=== PATIENT | female | born 1985 | race Caucasian/White ===

== ENCOUNTER 2017-12-25 11:57 | Emergency (ER) | payer SELFPAY ==
[2017-12-25 12:06] VITALS: BP 129/87; PULSE 84; RESP 18; TEMP 36.5; O2SAT 93
--- NOTE | 2017-12-25 12:46 | ED.GENADUL_ITS ---
Discharge Plan Disposition Patient Disposition: HOME Condition: Stable Discharge Details Chief Complaint: RespSymp Clinical Impression: Asthmatic bronchitis Primary Care Provider: Antonette Khan ED Provider: Caprice Brown Home Meds and New Rx's Prescriptions: New prednisone 50 mg tablet 50 mg PO DAILY 5 Days Qty: 5 RF: 0 albuterol sulfate 2.5 mg/0.5 mL solution for nebulization 2.5 mg IH QID PRN (Reason: shortness of breath or wheezing) Qty: 30 RF: 0 azithromycin [Zithromax Z-He] 250 mg tablet See Label Instructions .ROUTE .COMPLEX Qty: 6 RF: 0 Continue cyanocobalamin (vitamin B-12) 250 MCG tablet 1 tab PO DAILY Qty: 100 RF: 3 cholecalciferol (vitamin D3) [Vitamin D3] 1,000 UNIT capsule 2 cap PO DAILY Qty: 200 RF: 3 levonorgestrel [Mirena] 1 EACH intrauterine device 1 ea Intrauterine ONCE Qty: 1 RF: 0 ipratropium-albuterol 3 ML solution for nebulization 3 ml Inhalation Q4H PRN Qty: 1 RF: 0 albuterol sulfate [ProAir HFA] 200 PUFF HFA aerosol inhaler 2 puff Inhalation Q6H PRN Qty: 1 RF: 0 multivitamin [Daily Multi-Vitamin] 1 EACH tablet 1 ea PO DAILY RF: 0 Discharge Instructions Instructions: Asthma (ED), Acute Bronchitis (ED) Additional Instructions: Take the steroids until finished. Use your inhaler and nebulizer machine as directed. If you have no relief in symptoms over the next 1-2 days, you may start the antibiotics. Follow-up with primary care doctor in 1 week for reevaluation. Return to the emergency department any worsening or new concerning symptoms. Discharge Data Discharge Date/Time-TO BE ENTERED AT DEPARTURE: 12/25/17 13:24 Discharge Physician: Caprice Brown Medical Decision Making 32-year-old female with a history of asthma who presents with productive cough and shortness of breath for the past 2 weeks, worse over the past week. Pt has IUD but otherwise no DVT/PE risk factors. Appears consistent with URI, bronchitis, acute asthma exacerbation, asthmatic bronchitis. Patient offered CXR but declines. Will give DuoNeb and dose of steroids. Discussed with patient that her symptoms can likely be due to an acute asthma exacerbation in association with a viral infection, but may progress to a bacterial infection. 1316 -- Pt admits to some improvement of symptoms after inhaler. Pt feels better and is requesting to go home. Albuterol inhaler given for home. Scripts for albuterol, prednisone given. As she is a smoker, prescription for Zithromax given if symptoms do not improve with steroids and inhaler over the next 2 days Patient instructed to follow-up with primary care doctor in 1 week for reevaluation and return here immediately if worse. HPI General Mode of arrival: ambulatory . Date/Time Provider Initiated Documentation: 12/25/17 12:11 . Limitations to Documentation: no limitations . Information obtained by: patient . HPI Narrative: Pt is a 32yo M who presents to the ED w/ a c/o cough with yellow and green sputum for the past 2 weeks, worse over the past week. Patient states she has a history of pneumonia last year and was last on antibiotics at that time. She denies known fever. She has been eating and drinking. She has been taking cough suppressants, inhalers and neb treatment without relief. She last used several neb treatments every 2 hours this morning with only temporary relief. She denies recent surgery, recent travel, leg pain or swelling. She admits to occasional dizziness at times of feeling short of breath earlier today but denies any present. Past medical history: Asthma Surgical history: Cholecystectomy, Social history: Smokes tobacco, daily alcohol use of 2 beers, previous history of opioid dependence Meds: Xopenex, ProAir, Mirena Allergies: None PCP: [facility] medical Denies known Related Data Home Medications Medication Instructions Recorded Confirmed multivitamin [Daily Multi-Vitamin] 1 ea PO DAILY 11/03/13 07/27/14 cholecalciferol (vitamin D3) 2 cap PO DAILY #200 tab-cap 02/05/15 [Vitamin D3] cyanocobalamin (vitamin B-12) 1 tab PO DAILY #100 tab 02/05/15 ipratropium-albuterol 3 ml INHALATION Q4H PRN #1 box 12/02/15 levonorgestrel [Mirena] 1 ea INTRAUTERINE ONCE #1 implant 12/02/15 albuterol sulfate [ProAir HFA] 2 puff INHALATION Q6H PRN #1 inh 03/06/18 albuterol sulfate 2.5 mg IH QID PRN #30 each 12/25/17 azithromycin [Zithromax Z-He] See Label Instructions .ROUTE 12/25/17 .COMPLEX #6 tab prednisone 50 mg PO DAILY 5 Days #5 tab 12/25/17 Previous Rx's Medication Instructions Recorded albuterol sulfate [ProAir HFA] 2 puff INHALATION Q6H PRN #1 inh 05/18/17 albuterol sulfate 2.5 mg IH QID PRN #30 each 12/25/17 azithromycin [Zithromax Z-He] See Label Instructions .ROUTE 12/25/17 .COMPLEX #6 tab prednisone 50 mg PO DAILY 5 Days #5 tab 12/25/17 Allergies Allergy/AdvReac Type Severity Reaction Status Date / Time CAT/FELINE PRODUCTS Allergy Severe Anaphylaxsi Uncoded 07/26/14 23:57 s General Stated Complaint: RespSymp SAVANNAH: 3 Review of Systems Review of Systems All systems reviewed & are unremarkable except as noted in HPI and below Constitutional Denies chills, Denies excessive sweating, Denies fatigue, Denies fever(s), Denies weakness and Denies weight loss Eyes Reports system reviewed and no additional complaints, except as docu and Denies blurry vision ENT Denies vertigo, Denies dizziness, Denies otalgia, Denies nasal congestion, Denies sore throat and Denies throat swelling Cardiovascular Denies chest pain, Denies syncope, Denies rapid heart rate and Reports dyspnea Respiratory Reports change in phlegm color (yellow, green), Reports chest congestion, Reports cough and Reports dyspnea Gastrointestinal Denies abdominal pain, Denies diarrhea and Denies vomiting Genitourinary Denies hematuria, Denies dysuria and Denies flank pain Musculoskeletal Denies back pain and Denies joint swelling Integumentary/Breasts Denies lesions and Denies rash Neurologic Denies behavioral changes, Denies confusion, Denies vertigo, Denies dizziness, Denies syncope and Denies weakness Psychiatric Denies behavioral changes, Denies confusion and Denies depression Endocrine Denies excessive sweating and Denies fatigue Hematologic/Lymphatic Denies easy bruising and Denies lymphadenopathy Allergic/Immunologic Denies throat swelling PFSH Family History Mother No problems noted. Father No problems noted. Sister No problems noted. Brother Asthma Grandfather No problems noted. Grandfather No problems noted. Grandmother Diabetes Grandmother No problems noted. Social History Smoking/Tobacco Use Status: Never Surgical History section (~12/2010) Cholecystectomy (~04/2011) ERCP Exam Const General: cooperative and healthy appearing Orientation: alert and awake [facility] Head: normal to inspection Ears: hearing grossly normal bilaterally, external ears normal and TM's normal bilaterally General nose exam: external nose normal Face and sinus: normal facial exam Mouth: oral mucosae normal Teeth and gingiva: dentition normal Throat: posterior oropharynx normal Eyes General: appearance normal, both eyes and all related structures Eyelids: eyelids normal Pupils: PERRL EOM: EOM intact bilaterally Neck Neck: normal visual inspection Lymphatic: no lymphadenopathy noted Chest Chest: normal inspection of the chest Resp Effort & Inspection: normal respiratory effort, able to speak in complete sentences, no respiratory distress and no use of accessory muscles Auscultation: no crackles, no rales, no rhonchi and wheezes (Wheezing throughout ) Cardio Rate: regular rate Rhythm: regular rhythm GI Inspection: normal to inspection Skin General skin exam: no rashes or lesions noted Neuro General: alert and awake Cognition: normal cognition Speech: speech normal Gait: normal gait Motor: muscle tone normal throughout Sensory Exam: no sensory deficits noted Extrem General: normal to inspection, full ROM, normal capillary refill and no edema Psych Appearance: grossly normal Mental Status: mental status grossly normal Speech and Movement: speech and movement normal Affect: normal affect Thought Process: normal Course Vital Signs Temperature 97.7 F 12/25/17 12:06 Pulse 84 12/25/17 12:06 Respiratory Rate 18 12/25/17 12:06 Blood Pressure 129/87 12/25/17 12:06 Pulse Oximetry 93 L 12/25/17 12:06 Temperature 97.7 F 12/25/17 12:06 Temperature Source Temporal Artery Scan 12/25/17 12:06 Pulse 84 12/25/17 12:06 Respiratory Rate 18 12/25/17 12:06 Blood Pressure 129/87 12/25/17 12:06 Pulse Oximetry 93 L 12/25/17 12:06 Pain Level 5 12/25/17 12:06
[2017-12-25 12:51] VITALS: RESP 4
[2017-12-25] MEDS: predniSONE 20 MG TAB 60 MG PO (12:51)
[2017-12-25] MEDS: Albuterol/Ipratropium 3 ML UPD VIAL UPD (12:51)
[2017-12-25 13:28] VITALS: BP 110/70; PULSE 88; RESP 18; TEMP 38; O2SAT 99
== END 2017-12-25 13:24 | disposition home or self-care (01) ==
PROVIDERS: Emergency Provider Physician Assistant; PCP Nurse Practitioner Family
DX: J44.0 Chronic obstructive pulmonary disease with (acute) lower respiratory infection (principal); J20.9 Acute bronchitis, unspecified; J45.990 Exercise induced bronchospasm; F17.210 Nicotine dependence, cigarettes, uncomplicated
CPT/HCPCS: 94640; 99283; J7512; J7620

== ENCOUNTER 2018-01-10 16:48 | Emergency (ER) | payer SELFPAY ==
[2018-01-10 16:52] VITALS: BP 108/78; PULSE 106; RESP 20; TEMP 36.7; O2SAT 96
--- NOTE | 2018-01-10 17:39 | W.ED.GENAD ---
Discharge Plan Disposition Patient Disposition: HOME Condition: Stable Discharge Details Chief Complaint: RespSymp Clinical Impression: Asthma exacerbation, URI (upper respiratory infection) Primary Care Provider: Antonette Khan ED Provider: Caprice Brown Home Meds and New Rx's Prescriptions: New albuterol sulfate 2.5 mg /3 mL (0.083 %) solution for nebulization 2.5 mg IH Q4H PRN (Reason: shortness of breath or wheezing) Qty: 75 RF: 0 prednisone 20 mg tablet 20 mg PO DIRECTED Qty: 12 RF: 0 albuterol sulfate 90 mcg/actuation aerosol powdr breath activated 2 puff IH Q6H PRN (Reason: shortness of breath or wheezing) Qty: 1 RF: 0 fluticasone-salmeterol [Advair Diskus] 250-50 mcg/dose blister with device 1 inh IH BID Qty: 14 RF: 0 Continue cyanocobalamin (vitamin B-12) 250 MCG tablet 1 tab PO DAILY Qty: 100 RF: 3 cholecalciferol (vitamin D3) [Vitamin D3] 1,000 UNIT capsule 2 cap PO DAILY Qty: 200 RF: 3 levonorgestrel [Mirena] 1 EACH intrauterine device 1 ea Intrauterine ONCE Qty: 1 RF: 0 ipratropium-albuterol 3 ML solution for nebulization 3 ml Inhalation Q4H PRN Qty: 1 RF: 0 albuterol sulfate [ProAir HFA] 200 PUFF HFA aerosol inhaler 2 puff Inhalation Q6H PRN Qty: 1 RF: 0 multivitamin [Daily Multi-Vitamin] 1 EACH tablet 1 ea PO DAILY RF: 0 albuterol sulfate 2.5 mg/0.5 mL solution for nebulization 2.5 mg IH QID PRN (Reason: shortness of breath or wheezing) Qty: 30 RF: 0 Discharge Instructions Instructions: Asthma (ED), Upper Respiratory Infection (ED) Additional Instructions: Use your albuterol inhaler and nebulizer as needed and directed. Use the Advair Diskus daily as directed. Take the steroids until finished. Follow-up with your primary care doctor in 1 week for reevaluation and for referral to allergy or pulmonology for further evaluation and management of your asthma. Return immediately to the emergency department any worsening or new concerning symptoms. Discharge Data Discharge Physician: Caprice Brown Medical Decision Making 32-year-old female with history of asthma who presents with cough, shortness of breath and wheezing for the past 5 days. Patient was seen here on 12/25/17 for similar symptoms, diagnosed with asthmatic bronchitis, and sent home with albuterol, steroids and Zithromax. Patient states she improved approximately 75%, finished her steroids 6 days ago, and her symptoms returned 5 days ago. He admits to cough with white sputum. She denies fever. Urine test negative. Vitals within normal limits. Heart rate mildly tachycardic on arrival but within normal limits upon my evaluation. Afebrile. Patient appears nontoxic, speaking full sentences. She does appear to have nasal congestion. She has wheezing and rhonchi throughout, but no retractions or accessory muscle use. Will give DuoNeb and a dose of steroids. Patient has been using 2-3 nebulizer treatments daily since stopping her steroids 5 days ago. 181 --patient feels better and is requesting to go home. She declines another neb treatment. She declines a chest x-ray. Discussed with patient that she likely can benefit from a controller medication such as Advair, as well as evaluation by allergy and/or pulmonology. Patient states she is followed by [facility]. She is instructed to call them to schedule follow-up appointment for reevaluation. Will place on care management list to help arrange for appointment with PCP as well as specialist as patient states she has been having difficulty with community connections due to her insurance. Discussed with patient the concerns with frequent steroid use for asthma and side effects including osteoporosis, infection, hyperglycemia. Also discussed the importance of follow-up with a specialist for management of her chronic asthma. Also discussed that as patient has no fever, no toxic appearing signs, antibiotics not indicated at this time and she is agreeable. She is not a smoker. HPI General Mode of arrival: ambulatory. Date/Time Provider Initiated Documentation: 01/10/18 17:08. Limitations to Documentation: no limitations. Information obtained by: patient. HPI Narrative: Patient is a 32-year-old female with a history of asthma who presents with cough, shortness of breath and wheezing for the past 5 days. Patient was seen here 2 weeks ago for the same complaint and given albuterol, prednisone and Zithromax. Patient states she finished the steroids almost 1 week ago, and her symptoms returned 2 days later. She states she improved approximately 75% after the steroids and antibiotics. He denies fever. She admits to cough with white sputum. Past medical history: Asthma, history of narcotic drug abuse Surgical history: Cholecystectomy, Social history: Former smoker, currently on nicotine patch. Denies alcohol or drugs. Medications: Albuterol nebulizer as needed, albuterol inhaler as needed, Mirena Allergies: CAT feline products PCP: [facility] Related Data Home Medications Medication Instructions Recorded Confirmed multivitamin [Daily Multi-Vitamin] 1 ea PO DAILY 11/03/13 01/10/18 cholecalciferol (vitamin D3) 2 cap PO DAILY #200 tab-cap 02/05/15 01/10/18 [Vitamin D3] cyanocobalamin (vitamin B-12) 1 tab PO DAILY #100 tab 02/05/15 01/10/18 ipratropium-albuterol 3 ml INHALATION Q4H PRN #1 box 12/02/15 01/10/18 levonorgestrel [Mirena] 1 ea INTRAUTERINE ONCE #1 implant 12/02/15 01/10/18 albuterol sulfate [ProAir HFA] 2 puff INHALATION Q6H PRN #1 inh 05/18/17 01/10/18 albuterol sulfate 2.5 mg IH QID PRN #30 each 12/25/17 01/10/18 albuterol sulfate 2 puff IH Q6H PRN #1 each 01/10/18 albuterol sulfate 2.5 mg IH Q4H PRN #75 ml 01/10/18 fluticasone-salmeterol [Advair 1 inh IH BID #14 each 01/10/18 Diskus] prednisone 20 mg PO DIRECTED #12 tab 01/10/18 Previous Rx's Medication Instructions Recorded albuterol sulfate [ProAir HFA] 2 puff INHALATION Q6H PRN #1 inh 05/18/17 albuterol sulfate 2.5 mg IH QID PRN #30 each 12/25/17 albuterol sulfate 2 puff IH Q6H PRN #1 each 01/10/18 albuterol sulfate 2.5 mg IH Q4H PRN #75 ml 01/10/18 fluticasone-salmeterol [Advair 1 inh IH BID #14 each 01/10/18 Diskus] prednisone 20 mg PO DIRECTED #12 tab 01/10/18 Allergies Allergy/AdvReac Type Severity Reaction Status Date / Time CAT/FELINE PRODUCTS Allergy Severe Anaphylaxsi Uncoded 01/10/18 16:57 s General Stated Complaint: RespSymp SAVANNAH: 3 Review of Systems Review of Systems All systems reviewed & are unremarkable except as noted in HPI and below Constitutional Reports as per HPI, Denies chills and Denies fever(s) Eyes Denies blurry vision ENT Denies dizziness, Denies sore throat and Denies throat swelling Cardiovascular Denies chest pain and Reports dyspnea Respiratory Reports cough, Reports dyspnea and Reports wheezing Gastrointestinal Denies abdominal pain, Denies diarrhea and Denies vomiting Genitourinary Denies hematuria and Denies dysuria Musculoskeletal Denies back pain and Denies numbness Integumentary/Breasts Denies lesions and Denies rash Neurologic Denies dizziness and Denies numbness Allergic/Immunologic Denies throat swelling and Reports wheezing PFSH Family History Mother No problems noted. Father No problems noted. Sister No problems noted. Brother Asthma Grandfather No problems noted. Grandfather No problems noted. Grandmother Diabetes Grandmother No problems noted. Social History Smoking/Tobacco Use Status: Never Surgical History section (~12/2010) Cholecystectomy (~04/2011) ERCP Exam Const General: cooperative and healthy appearing Orientation: alert and awake [facility] Head: normal to inspection Ears: hearing grossly normal bilaterally, external ears normal and TM's normal bilaterally General nose exam: external nose normal Face and sinus: normal facial exam and sinuses nontender Mouth: oral mucosae normal Teeth and gingiva: dentition normal Throat: posterior oropharynx normal Eyes General: appearance normal, both eyes and all related structures Eyelids: eyelids normal Pupils: PERRL EOM: EOM intact bilaterally Neck Neck: normal visual inspection Lymphatic: no lymphadenopathy noted Chest Chest: normal inspection of the chest Resp Effort & Inspection: normal respiratory effort and able to speak in complete sentences Auscultation: rhonchi and wheezes Cardio Rate: regular rate Rhythm: regular rhythm GI Inspection: normal to inspection Skin General skin exam: no rashes or lesions noted Neuro General: alert and awake Cognition: normal cognition Speech: speech normal Gait: normal gait Motor: muscle tone normal throughout Sensory Exam: no sensory deficits noted Extrem General: normal to inspection, full ROM and normal capillary refill Psych Appearance: grossly normal Mental Status: mental status grossly normal Speech and Movement: speech and movement normal Affect: normal affect Thought Process: normal Course Vital Signs Temperature 98.1 F 01/10/18 16:52 Pulse 106 H 01/10/18 16:52 Respiratory Rate 20 01/10/18 16:52 Blood Pressure 108/78 01/10/18 16:52 Pulse Oximetry 96 01/10/18 16:52 Temperature 98.1 F 01/10/18 16:52 Temperature Source Skin 01/10/18 16:52 Pulse 106 H 01/10/18 16:52 Respiratory Rate 20 01/10/18 16:52 Respiratory Effort 01/10/18 17:08 Respiratory Depth Normal 01/10/18 17:08 Blood Pressure 108/78 01/10/18 16:52 Blood Pressure Position Sitting 01/10/18 16:52 Pulse Oximetry 96 01/10/18 16:52 Oxygen Delivery Method Room Air 01/10/18 16:52 Oxygen Flow Rate 0 01/10/18 16:52 Pain Level 4 01/10/18 16:52
[2018-01-10 17:50] VITALS: RESP 8
[2018-01-10] MEDS: predniSONE 20 MG TAB 60 MG PO (17:50)
[2018-01-10] MEDS: Albuterol/Ipratropium 3 ML UPD VIAL UPD (17:50)
[2018-01-10 18:45] VITALS: BP 110/72; PULSE 94; RESP 16; TEMP 36.7; O2SAT 95
== END 2018-01-10 18:47 | disposition home or self-care (01) ==
PROVIDERS: Emergency Provider Physician Assistant; PCP Nurse Practitioner Family
DX: J45.901 Unspecified asthma with (acute) exacerbation (principal); J06.9 Acute upper respiratory infection, unspecified; Z87.891 Personal history of nicotine dependence
CPT/HCPCS: 81025; 94640; 99283; J7512; J7620

== ENCOUNTER 2018-03-11 17:11 | Outpatient (REF) | payer MEDICAID, SELFPAY ==
--- NOTE | 2018-03-11 16:30 | PAPFT_PTH ---
PATIENT: Bijal Aguirre LOC: [facility] U#:[id number] AGE/SX: 32/F ROOM: RE03/11/[address]: RYAN Carrillo : 1985 BED: DIS: 03/11/2018 SPEC #: [id number] RECD: 03/14/18 12:30 STATUS: HODA BARR #: [id number] MADAI: 03/11/18 16:[address]: Antonette Khan [facility] Cytology RECD BY: Cherie Villa Tissues: 1 - CX/ENDOCX FOR PAP SMEARS Procedures: PAP THIN PREP/UVM Screening HPV DNA PROBE Comments: [id number]
== END 2018-03-11 17:31 ==
LOC: LBN 17:11
PROVIDERS: PCP Nurse Practitioner Family; Visit Provider Nurse Practitioner Family
DX: Z12.4 Encounter for screening for malignant neoplasm of cervix (principal); Z11.51 Encounter for screening for human papillomavirus (HPV)
CPT/HCPCS: 88142; 87624

== ENCOUNTER 2018-04-20 08:10 | Emergency (ER) | payer MEDICAID, SELFPAY ==
--- NOTE | 2018-04-20 08:14 | NUR.NOTE ---
pt states that last night at approximately 1999 she fell and stuck her head pt has no recollection of this and woke up in the [place] only to find out that this had happened based on her husbands recollections of it. states that she was not unconscious when he found her pt states that her hair was matted from blood and she has had a headake 06/22 since she awoke
[2018-04-20 08:17] VITALS: BP 135/87; PULSE 103; RESP 17; TEMP 37.1; O2SAT 97
--- NOTE | 2018-04-20 08:53 | ED.GENADUL_ITS ---
Discharge Plan Disposition Patient Disposition: HOME Condition: Good Discharge Details Chief Complaint: HeadInjury Clinical Impression: Laceration of scalp, Head injury Primary Care Provider: Antonette Khan ED Provider: Caprice Brown Home Meds and New Rx's Prescriptions: Continued Mirena 20 mcg/24 hr (5 years) intrauterine device 1 insert IY ONCE RF: 0 Advair Diskus 250-50 mcg/dose blister with device 1 inh IH BID Qty: 60 RF: 6 albuterol sulfate 90 mcg/actuation HFA aerosol inhaler 1 - 2 puff IH Q6H PRN (Reason: shortness of breath or wheezing) Qty: 18 RF: 6 cyanocobalamin (vitamin B-12) 250 MCG tablet 1 tab PO DAILY Qty: 100 RF: 3 multivitamin [Daily Multi-Vitamin] 1 EACH tablet 1 ea PO DAILY RF: 0 Discharge Instructions Instructions: Laceration (ED), Head Injury (ED) Additional Instructions: Alternate Tylenol and Motrin as needed and directed for pain. If you develop any pain or tenderness, redness or swelling at the laceration site, you may apply antibiotic ointment. Follow up with your primary doctor in 2 days for wound check if needed. Follow-up with your primary care doctor or return to the emergency department in 10 days for staple removal. Return immediately to the emergency department any worsening or new concerning symptoms such as persistent headaches, vomiting or any other concerns. Discharge Data Discharge Date/Time-TO BE ENTERED AT DEPARTURE: 04/20/18 11:00 Discharge Physician: Caprice Brown Medical Decision Making 32-year-old female who presents with head injury and head laceration status post fall last night. She thinks she was sleepwalking when she may have gotten out of bed and tripped on a broken laundry basket hitting her head on the radiator. She does not remember the details of the fall, but she thinks this may have been what happened. No complaints of chest pain, palpitations, shortness of breath. Vitals within normal limits. Patient appears nontoxic and in no acute distress. She has a 3 cm superficial laceration to the back of the head. Normal ENT exam. No other evidence of chest, abdomen or extremity trauma or pain. C-spine/T-spine/L-spine nontender. No focal deficits. Per her history, it sounds like more of a mechanical fall, but since we do not know the details, will obtain an EKG, labs as well as CT head. EKG notes a rate of 87, sinus, T wave inversion in V3, no acute ST findings. Tetanus up-to-date 2011. 1020 --labs and imaging reviewed and unremarkable. CT head negative. No acute findings on labs. Patient states she feels better and no acute complaints. 5 haylee placed in the scalp laceration. Patient instructed to follow-up with primary care doctor return to the ER for staple removal in 10 days. She is instructed to follow-up with your primary care doctor in 1 week for reevaluation and return here at any time if worse such as persistent or worsening headaches, persistent vomiting or any other concerns. Medical Records Medical records reviewed: Yes I reviewed the patient's medical records. Lab Data Lab results reviewed: Yes I reviewed the patient's lab results. Laboratory Tests Range/Units 04/20/18 04/20/18 09:25 09:25 WBC (4.4-10.8) k/cumm 5.44 RBC (4.00-5.20) m/cumm 4.70 Hgb (12.0-15.5) g/dL 14.4 Hct (36.0-46.0) % 42.2 MCV (80-95) fL 89.8 MCH (27.0-33.0) pg 30.6 MCHC (32.0-36.0) g/dL 34.1 RDW (11.7-14.6) % 12.5 Plt Count (130-400) x1000/uL 229 MPV (8.0-11.0) fL 10.5 Immature Gran % 0.0 Neutrophils % 42.9 Lymphocytes % 39.7 Monocytes % 8.5 Eosinophils % 8.5 Basophils % 0.4 Absolute Neutrophils (1.2-6.7) k/cumm 2.34 Absolute Lymphocytes (1.2-3.4) k/cumm 2.16 Absolute Monocytes (0.11-0.7) k/cumm 0.46 Absolute Eosinophils (0.0-0.7) k/cumm 0.46 Absolute Basophils (0.0-0.2) k/cumm 0.02 Sodium (136-145) mmol/L 138 Potassium (3.5-5.1) mmol/L 4.4 Chloride (98-107) mmol/L 102 Carbon Dioxide (21.0-32.0) mmol/L 28.1 Anion Gap (3-11) mmol/L 7.9 BUN (7-18) mg/dL 15 Creatinine (0.55-1.02) mg/dL 0.70 Estimated GFR/1.73 m2 (mL/min/1.73m2) >= 60.00 Glucose (70-100) mg/dL 100 Calcium (8.5-10.1) mg/dL 9.2 test negative ECG Data Attestation: I personally reviewed and interpreted this ECG (s) as follows: Interpretation: Rate of 87, sinus, T wave inversion in lead V3, no acute ST elevation or depression. QTc 447. QRS 98. HPI General Mode of arrival: ambulatory . Date/Time Provider Initiated Documentation: 04/20/18 08:17 . Limitations to Documentation: no limitations . Information obtained by: patient . HPI Narrative: Patient is a 32-year-old female who presents with head laceration status post head injury last night. Patient states she went to bed approximately 9 PM and apparently fell shortly after falling asleep. She thinks that she stood up, tripped on the broken laundry basket that was near the bed and hit her head on the radiator. Patient states her checked on her after she fell and helped her to the bed. She states she remembers going to bed but does not remember the fall this morning but she thinks this is what happened. She states this morning she had matted blood on the back of her head and a headache 4/10. She denies any blurry vision, nausea, vomiting, dizziness, shortness of breath, arm pain or weakness or neck pain. Patient states she has had issues with sleeping lately and that she has been sleepwalking, as well as eating in the middle the night, and doing odd things. Patient states she has recently had a dream in which she thought she was drinking from a water bottle but was drinking a hand athletics director bottle. She states she has also made a coffee ground taco in the middle of the night. She states she was seen by her pcp for these sleeping difficulties and is planning to get a sleep study. Related Data Home Medications Medication Instructions Recorded Confirmed multivitamin [Daily Multi-Vitamin] 1 ea PO DAILY 11/03/13 04/20/18 cyanocobalamin (vitamin B-12) 1 tab PO DAILY #100 tab 02/05/15 04/20/18 albuterol sulfate HFA 90 1 - 2 puff IH Q6H PRN #18 gm 03/11/18 04/20/18 mcg/actuation aerosol inhaler fluticasone 250 mcg-salmeterol 50 1 inh IH BID #60 each 03/11/18 04/20/18 mcg/dose blistr powdr for inhalation levonorgestrel 20 mcg/24 hr (5 1 insert IY ONCE 03/11/18 04/20/18 years) intrauterine device Previous Rx's Medication Instructions Recorded albuterol sulfate HFA 90 1 - 2 puff IH Q6H PRN #18 gm 03/11/18 mcg/actuation aerosol inhaler fluticasone 250 mcg-salmeterol 50 1 inh IH BID #60 each 03/11/18 mcg/dose blistr powdr for inhalation Allergies Allergy/AdvReac Type Severity Reaction Status Date / Time CAT/FELINE PRODUCTS Allergy Severe Anaphylaxsi Uncoded 04/20/18 08:19 s General Stated Complaint: HeadInjury SAVANNAH: 3 Review of Systems Review of Systems All systems reviewed & are unremarkable except as noted in HPI and below Constitutional Reports as per HPI, Denies chills, Denies fever(s) and Reports headache(s) Eyes Denies blurry vision ENT Denies dizziness, Reports headache(s), Denies sore throat and Denies throat swelling Cardiovascular Denies chest pain and Denies dyspnea Respiratory Denies cough and Denies dyspnea Gastrointestinal Denies abdominal pain, Denies diarrhea and Denies vomiting Genitourinary Denies hematuria and Denies dysuria Musculoskeletal Denies back pain and Denies numbness Integumentary/Breasts Denies lesions and Denies rash Neurologic Denies dizziness, Reports headache(s), Denies focal weakness and Denies numbness Allergic/Immunologic Denies throat swelling [facility] Medical History Generalized anxiety disorder (Chronic) Asthma (Chronic) LGSIL on Pap smear of cervix (Resolved ~2003) Opioid abuse (Resolved) Surgical History History of colposcopy (Inactive ~2003) section (~12/2010) Cholecystectomy (04/22/11) ERCP Family History Mother No problems noted. Father No problems noted. Sister Down syndrome Hypothyroidism Brother Asthma Son Asthma Daughter No problems noted. Maternal Grandfather No problems noted. Maternal Grandmother Diabetes Paternal Grandfather No problems noted. Paternal Grandmother No problems noted. Social History caregiver/support person: No household members: significant other and children housing: apartment pets and animals: Yes pets and animals: snake(s) and other details: rat, hedgehog sexually active: Yes do you think of yourself as: straight/heterosexual current gender identity: female what type of physical activity do you participate in: other details: work frequency: 3-4 times per week Smoking and Tabacco status: Current every day tobacco type: cigarettes how long ago did patient quit smoking: has quit before second hand exposure: Yes alcohol intake: current alcohol intake frequency: 3 or more drinks per day Alcohol type: beer and hard liquor substance use type: former substance user, marijuana, crack/cocaine and heroin jesika/anabaptist: [employer]ar[employer] What is your relationship status?: living with partner How often do you talk on the phone with friends or family?: twice per week How often do you get together with friends or relatives?: never How often do you attend taoism or pentecostal services?: 1-3 times per year Do you belong to any clubs or organized social groups?: no Panel score (0-1 are the most socially isolated patients): 1 History History 2 Para Hx # Term Pregnancies Multiple births Hx # Pregnancies Ectopic pregnancies AB induced Hx Number of Living Children 2 AB spontaneous Exam Const General: cooperative and healthy appearing Orientation: alert and awake HENOH Head images: 1. 3cm straight laceration posterior head/scalp Ears: hearing grossly normal bilaterally, external ears normal and TM's normal bilaterally General nose exam: external nose normal Face and sinus: normal facial exam Mouth: oral mucosae normal Teeth and gingiva: dentition normal Throat: posterior oropharynx normal Eyes General: appearance normal, both eyes and all related structures Eyelids: eyelids normal Pupils: PERRL EOM: EOM intact bilaterally Neck Neck: normal visual inspection Lymphatic: no lymphadenopathy noted Chest Chest: normal inspection of the chest, normal palpation of entire chest wall and no tenderness Resp Effort & Inspection: normal respiratory effort and able to speak in complete sentences Auscultation: clear to auscultation bilaterally Cardio Rate: regular rate Rhythm: regular rhythm GI Inspection: normal to inspection Palpation: soft, not firm, no guarding, no hepatosplenomegaly, no masses and nontender Auscultation: normal bowel sounds Back/Spine/Pelvis Back: no CVA tenderness Cervical Spine: No cervical muscular tenderness and No cervical spinal tenderness Thoracic/Lumbar Spine: thoracic and lumbar spine normal to inspection, No thoracic spinal tenderness and No lumbar spinal tenderness Skin General skin exam: no rashes or lesions noted Neuro General: alert and awake Cranial Nerves: CN's II-XI intact bilaterally Cognition: normal cognition Speech: speech normal Gait: normal gait Motor: muscle tone normal throughout and strength 5/5 throughout Sensory Exam: no sensory deficits noted Extrem General: normal to inspection, full ROM, normal capillary refill and no edema Psych Appearance: grossly normal Mental Status: mental status grossly normal Speech and Movement: speech and movement normal Affect: normal affect Thought Process: normal Course Vital Signs Temperature 98.8 F 04/20/18 08:17 Pulse 103 H 04/20/18 08:17 Respiratory Rate 17 04/20/18 08:17 Blood Pressure 135/87 04/20/18 08:17 Pulse Oximetry 97 04/20/18 08:17 Temperature 98.8 F 04/20/18 08:17 Temperature Source Skin 04/20/18 08:17 Pulse 103 H 04/20/18 08:17 Respiratory Rate 17 04/20/18 08:17 Respiratory Effort 04/20/18 08:20 Blood Pressure 135/87 04/20/18 08:17 Blood Pressure Position Sitting 04/20/18 08:17 Pulse Oximetry 97 04/20/18 08:17 Oxygen Delivery Method Room Air 04/20/18 08:17 Oxygen Flow Rate 0 04/20/18 08:17 Pain Level 4 04/20/18 08:17 Procedures Laceration Laceration 1: Site: scalp Size (cm): 3 Description: linear Depth: simple, single layer Local Anesthetic: Lidocaine 1% and with Epi Amount of anesthesia used (mL): 5 Pre-repair: wound explored, irrigated extensively and deep structures intact Skin layer closed with: other (5 haylee)
--- NOTE | 2018-04-20 09:04 | DI.CT_ITS ---
SYMPTOMS/DIAGNOSIS: S/P FALL, ? ACUTE FRACTURE/INTRACRANIAL INJURY NONCONTRAST HEAD CT: No intracranial hemorrhage or skull fracture is seen. The orbits and visualized portions of the sinuses and mastoid air cells are unremarkable. The ventricles are normal in size. IMPRESSION: Negative head CT.
[2018-04-20 09:26] LABS: Absolute Basophil Count 0.02 k/cumm (0.0-0.2); Absolute Eosinophil Count 0.46 k/cumm (0.0-0.7); Absolute Lymphocyte Count 2.16 k/cumm (1.2-3.4); Absolute Monocyte Count 0.46 k/cumm (0.11-0.7); Absolute Neutrophil Count 2.34 k/cumm (1.2-6.7); Basophils % 0.4; Eosinophils % 8.5; HCT 42.2 % (36.0-46.0); HGB 14.4 g/dL (12.0-15.5); Lymphocytes % 39.7; Mean Corp. HGB Concentration 34.1 g/dL (32.0-36.0); Mean Corpuscular Hemoglobin 30.6 pg (27.0-33.0); Mean Corpuscular Volume 89.8 fL (80-95); Mean Platelet Volume 10.5 fL (8.0-11.0); Monocytes % 8.5; Neutrophils % 42.9; Platelet Count 229 x1000/uL (130-400); RBC Distribution Width 12.5 % (11.7-14.6); White Blood Cell Count 5.44 k/cumm (4.4-10.8)
[2018-04-20 09:37] LABS: Anion Gap 7.9 mmol/L (3-11); BUN 15 mg/dL (7-18); CO2 28.1 mmol/L (21.0-32.0); Calcium 9.2 mg/dL (8.5-10.1); Chloride 102 mmol/L (98-107); Glucose 100 mg/dL (70-100); Potassium 4.4 mmol/L (3.5-5.1); Sodium 138 mmol/L (136-145)
[2018-04-20 10:51] VITALS: BP 135/87; PULSE 103; RESP 17; TEMP 37.1; O2SAT 97
== END 2018-04-20 11:00 | disposition home or self-care (01) ==
PROVIDERS: Emergency Provider Physician Assistant; PCP Nurse Practitioner Family
DX: S09.90XA Unspecified injury of head, initial encounter (principal); S01.01XA Laceration without foreign body of scalp, initial encounter; W01.198A Fall on same level from slipping, tripping and stumbling with subsequent striking against other object, initial encounter
CPT/HCPCS: 12002; 36415; 80048; 81025; 93005; 99284; 70450; 85025; 93010

== ENCOUNTER 2018-04-29 08:44 | Outpatient (CLI) | payer MEDICAID, SELFPAY ==
[2018-04-29 16:15] LABS: ALT 246 U/L (12-78); AST 213 U/L (15-37); Albumin 4.1 g/dL (3.4-5.0); Alkaline Phosphatase 146 U/L (46-116); Anion Gap 9.6 mmol/L (3-11); BUN 14 mg/dL (7-18); Bilirubin, Total 0.5 mg/dL (0.2-1.0); CO2 27.4 mmol/L (21.0-32.0); CREATININE 0.58 mg/dL (0.55-1.02); Calcium 9.4 mg/dL (8.5-10.1); Chloride 101 mmol/L (98-107); Cholesterol 167 mg/dL (50-200); Glucose 94 mg/dL (70-100); HDL Cholesterol 90 mg/dL (40-60); LDL CHOLESTEROL 63 mg/dL (<100); Potassium 4.5 mmol/L (3.5-5.1); Sodium 138 mmol/L (136-145); TSH 1.11 uIU/mL (0.358-3.74); Total Protein 8.5 g/dL (6.4-8.2); Triglyceride 51 mg/dL (30-150)
[2018-04-29 16:35] LABS: FREE T4 0.84 ng/dL (0.76-1.46)
[2018-05-02 15:41] LABS: Hepatitis A Antibody IgM Negative (NEGAT); Hepatitis B Core Antibody Negative (NEGAT); Hepatitis B surface Ag Negative (NEGAT); Hepatitis C Ab w Rflx HCV PCR Reactive (NEGAT)
== END 2018-04-29 09:04 ==
PROVIDERS: PCP Nurse Practitioner Family; Visit Provider Nurse Practitioner Family
DX: F41.1 Generalized anxiety disorder (principal); R94.5 Abnormal results of liver function studies; E11.9 Type 2 diabetes mellitus without complications; J45.40 Moderate persistent asthma, uncomplicated; R53.83 Other fatigue
CPT/HCPCS: 80053; 80061; 83721; 86704; 86709; 86803; 87340; 84439; 84443; 87522

== ENCOUNTER 2020-01-10 19:09 | Emergency (ER) | payer MEDICAID, SELFPAY ==
[2020-01-10] VITALS (8 sets, daily range): BP systolic 110–134; BP diastolic 75–87; PULSE 91–103; RESP 16–18; TEMP 37.1; O2SAT 92–96
--- NOTE | 2020-01-10 19:13 | W.ED.GENAD ---
Discharge Plan Disposition Patient Disposition: HOME Condition: Good Discharge Details Clinical Impression: Asthma, Hypokalemia Primary Care Provider: Antonette Khan ED Provider: Kalie Penaloza Home Meds and New Rx's Prescriptions: New prednisone 20 mg tablet 40 mg PO DAILY Qty: 8 RF: 0 albuterol sulfate 2.5 mg /3 mL (0.083 %) solution for nebulization 2.5 mg inhalation Q4H PRN (Reason: shortness of breath or wheezing) Qty: 75 RF: 0 Continued Mirena 20 mcg/24 hr (5 years) intrauterine device 1 insert IY ONCE RF: 0 cyanocobalamin (vitamin B-12) 250 MCG tablet 1 tab PO DAILY Qty: 100 RF: 3 albuterol sulfate 90 mcg/actuation HFA aerosol inhaler 1 - 2 puff IH Q6H PRN (Reason: shortness of breath or wheezing) Qty: 18 RF: 6 Advair HFA 115-21 mcg/actuation HFA aerosol inhaler 2 puff IH BID Qty: 12 RF: 4 ipratropium-albuterol 0.5 mg-3 mg(2.5 mg base)/3 mL solution for nebulization 3 ml IH QID PRN (Reason: wheezing) Qty: 15 RF: 6 multivitamin [Daily Multi-Vitamin] 1 EACH tablet 1 ea PO DAILY RF: 0 Discharge Instructions Instructions: Asthma (ED), Hypokalemia (ED) Additional Instructions: Your workup here today is most consistent with asthma exacerbation. Please use your inhaler and nebulizer as previously advised. First dose of steroids was given here tonight. Please take next dose in 24 hours. Please take as prescribed. Please follow up with primary care in one week for reevaluation. If you develop fevers/chills, chest pain, increased work of breathing or other new/worsening symptoms please seek care ugently once again. Stand Alone Forms: Work Release Referrals: Antonette Khan NP [Primary Care Provider] - Medical Decision Making Patient is a pleasant 34 year old female presneting today with c/c of SOB. States that it started 10 days ago and feels like her asthma has historically. She states this started after completing demolishion of a bathroom which she believes airated large amount of dust. She Denies CP. No GI upset, no HEENT symptoms. States that today she felt fatigued and achy which she associated with her persistent asthma. Symptoms improve with inhaler or nebulizer. Patient is on estrogen containing contraception. On exam, patient is in no respiratory distress. She is calm and nontoxic appearing. Scant wheezing in upper lobes bilaterally. Tachycardic, cardiac exam otherwise WNL. No lower extremity edema or calf tenderness. She and I dicussed differential. in particular, I am concerned about potential PE as she is a smoker and uses estrogen containing products. Plan to move forward with d-dimer and baseline labs. She is declining further breathing treatment at this time. States that sarah used nebulizer just prior to arrival. D-dimer WNL. No leukocytosis. Stable H&H. Potassium slightly low at 3.3, will replenish this orally. CXR reviewed by radiologist: FINDINGS: Lungs: Hyperinflation. No consolidation. Pleural space: Unremarkable. No pleural effusion. No pneumothorax. Heart/Mediastinum: Unremarkable. No cardiomegaly. Diaphragm: Eventrations of the hemidiaphragms. Bones/joints: Unremarkable. IMPRESSION: Hyperinflation of the lungs. Patient continues to feel well at rest. Will treat for asthma exacerbation with prednisone. First dose given here. She was given return precautions. Will refill her nebulizer medication as she states that this is running low. Encouraged close f/u with PCP. All quesitons and concerns were addressed, she is in agreement with this plan. All of her questions and concerns were addressed,she is in agreement with this plan. HPI General Mode of arrival: ambulatory. Date/Time Provider Initiated Documentation: 01/10/20 19:10. Limitations to Documentation: no limitations. Information obtained by: patient and RN notes reviewed. History of Present Illness 34 year old F presents to the emergency department with the chief complaint of shortness of breath, cough, described as moderate, Patient started experiencing this day(s) (10) and it has been constant. Immobilization improves symptom(s), and Medication improves symptom(s), (albuterol nebulizer) Movement worsens symptoms . Patient notes no other symptoms.. Patient did receive the following treatments prior to arrival, other (inhaler) Related Data Home Medications Medication Instructions Recorded Confirmed multivitamin [Daily Multi-Vitamin] 1 ea PO DAILY 11/03/13 01/10/20 cyanocobalamin (vitamin B-12) 1 tab PO DAILY #100 tab 02/05/15 01/10/20 levonorgestrel 20 mcg/24 hours (5 1 insert IY ONCE 03/11/18 01/10/20 yrs) 52 mg intrauterine device albuterol sulfate 90 mcg/actuation 1 - 2 puff IH Q6H PRN #18 gm 08/03/19 01/10/20 aerosol inhaler fluticasone propionate 115 2 puff IH BID #12 gm 08/03/19 01/10/20 mcg-salmeterol 21 mcg/actuation HFA inhaler ipratropium 0.5 mg-albuterol 3 mg 3 ml IH QID PRN #15 ml 01/04/20 01/10/20 (2.5 mg base)/3 mL nebulization soln albuterol sulfate 2.5 mg INHALATION Q4H PRN #75 ml 01/10/20 prednisone 40 mg PO DAILY #8 tab 01/10/20 Previous Rx's Medication Instructions Recorded albuterol sulfate 90 mcg/actuation 1 - 2 puff IH Q6H PRN #18 gm 08/03/19 aerosol inhaler fluticasone propionate 115 2 puff IH BID #12 gm 08/03/19 mcg-salmeterol 21 mcg/actuation HFA inhaler ipratropium 0.5 mg-albuterol 3 mg 3 ml IH QID PRN #15 ml 01/04/20 (2.5 mg base)/3 mL nebulization soln albuterol sulfate 2.5 mg INHALATION Q4H PRN #75 ml 01/10/20 prednisone 40 mg PO DAILY #8 tab 01/10/20 Allergies Allergy/AdvReac Type Severity Reaction Status Date / Time adhesive Allergy Mild faint rash Verified 01/10/20 19:17 CAT/FELINE PRODUCTS Allergy Severe Anaphylaxsi Uncoded 01/10/20 19:17 s General SAVANNAH: 3 Review of Systems Constitutional Constitutional: Reports as per HPI, Denies chills, Reports fatigue, Denies fever(s), Denies headache(s), Denies lethargy and Denies poor appetite Eyes Eyes: Denies change in vision ENT Ears, Nose, Mouth, and Throat: Denies dizziness and Denies headache(s) Cardiovascular Cardiovascular: Reports as per HPI, Reports dyspnea (none curently while at rest) and Reports dyspnea on exertion Respiratory Respiratory: Reports as per HPI, Denies chest congestion, Denies cough, Denies hemoptysis, Denies pain on inspiration, Denies pain with cough, Reports dyspnea (none curently while at rest), Reports dyspnea on exertion and Reports wheezing Gastrointestinal Gastrointestinal: Reports as per HPI, Denies abdominal pain, Denies diarrhea, Denies nausea and Denies vomiting Musculoskeletal Musculoskeletal: Reports as per HPI and Denies back pain Integumentary/Breasts Skin/Breast: Reports as per HPI and Denies rash Neurologic Neurologic: Reports as per HPI, Denies dizziness and Denies headache(s) Endocrine Endocrine: Reports fatigue Allergic/Immunologic Allergic/Immunologic: Reports wheezing [facility] Medical History (Updated 01/10/20 @ 21:33 by DOMINIC Quintero) Cigarette smoker Excessive drinking of alcohol Generalized anxiety disorder Hepatic steatosis Hepatitis C infection History of opioid abuse Insomnia Mild persistent asthma SALLY (obstructive sleep apnea) Mild on PSG 07/23/18 Parasomnia Surgical History History of section (~12/2010) History of colposcopy (~2003) S/P cholecystectomy (04/22/11) S/P ERCP (~04/2011) Family History Mother Alcohol abuse Father No problems noted. Sister Down syndrome Hypothyroidism Brother Asthma Brother Asthma Daughter No problems noted. Son No problems noted. Paternal Grandfather , at 87 No problems noted. Paternal Grandmother No problems noted. Maternal Grandfather No problems noted. Maternal Grandmother Diabetes Social History Smoking/Tobacco Use Status: Current every day Tobacco Type: cigarettes Tobacco: How many years used: 10 Quit status: considering quitting Second Hand Exposure: Yes Smoking risk assessment performed?: Yes Alcohol Intake: current Alcohol Intake frequency: a few times a week Alcohol type: beer and hard liquor Drug use: Current Sobriety Substance use type: former substance user, marijuana, crack/cocaine and heroin Caregiver/Support person: No Household members: significant other and children Housing: apartment Pets and animals: Yes Pets and animals: snake(s) and other Details: rat, hedgehog Sexually active: Yes Do you think of yourself as: straight/heterosexual Current gender identity: female What is your relationship status?: living with partner How often do you talk on the phone with friends or family?: twice per week How often do you get together with friends or relatives?: never How often do you attend judaism or worship services?: 1-3 times per year Do you belong to any clubs or organized social groups?: no Panel score (0-1 are the most socially isolated patients): 1 What type of physical activity do you participate in: other Details: work Frequency: 3-4 times per week Mariola/Catholic: Congregation Do you feel safe at home: Yes Do you feel safe in your relationship?: Yes History History 2 Para Hx # Term Pregnancies Multiple births Hx # Pregnancies Ectopic pregnancies AB induced Hx Number of Living Children 2 AB spontaneous Exam Const General: cooperative, healthy appearing, comfortable, no acute distress and well developed Nutritional Appearance: average body habitus and well nourished Orientation: alert, awake and oriented x3 HENMT Head: normal to inspection Ears: hearing grossly normal bilaterally Mouth: moist mucous membranes Chest Chest: normal inspection of the chest, normal palpation of entire chest wall and no crepitus Resp Effort & Inspection: normal respiratory effort, able to speak in complete sentences, no cough, no respiratory distress and not tachypneic Auscultation: no rales, no rhonchi and wheezes upper bilaterally Cardio Rate: regular rate Rhythm: regular rhythm Heart Sounds: S1 normal and S2 normal GI Inspection: normal to inspection, no edema and non-distended Palpation: soft, no hepatosplenomegaly, not firm, no guarding, not rigid and nontender Auscultation: normal bowel sounds Back/Spine/Pelvis Back: no CVA tenderness Thoracic/Lumbar Spine: thoracic and lumbar spine normal to inspection Skin General skin exam: no rashes or lesions noted Trauma: no lacerations or abrasions Neuro General: patient alert, patient awake and patient oriented x3 Cognition: normal cognition Speech: speech normal Gait: normal gait Extrem General: normal to inspection, capillary refill normal, no pedal edema, no calf tenderness and normal gait Psych Appearance: grossly normal and well kempt Mental Status: mental status grossly normal Speech and Movement: speech and movement normal
[2020-01-10] MEDS: Lactated Ringers 1,000 ML 500 ML IV (20:00)
[2020-01-10 20:28] LABS: D-Dimer 489 ng/mlFEU (<500)
[2020-01-10 20:51] LABS: Abs Immature Grans 0.01 10^3/uL (0.0-0.06); Absolute Basophil Count 0.03 10^3/uL (0.0-0.2); Absolute Eosinophil Count 0.85 10^3/uL (0.0-0.7); Absolute Lymphocyte Count 1.49 10^3/uL (1.2-3.4); Absolute Monocyte Count 0.86 10^3/uL (0.1-0.8); Absolute Neutrophil Count 4.45 10^3/uL (1.2-6.7); Basophils % 0.4; Eosinophils % 11.1; HCT 36.5 % (36.0-46.0); HGB 12.8 g/dL (11.2-15.7); Immature Grans % 0.1; Lymphocytes % 19.4; MCH 30.9 pg (27.0-33.0); MCHC 35.1 % (32.0-36.0); MCV 88.2 fL (80-95); MPV 10.5 fL (8.0-11.0); Monocytes % 11.2; Neutrophils % 57.8; Nucleated RBC 0 %; Platelet Count 239 10^3/uL (130-400); RBC 4.14 10^6/uL (3.93-5.22); RDW 11.8 % (11.7-14.6); RDW-SD 37.8 fL; WBC 7.69 10^3/uL (4.4-10.8)
--- NOTE | 2020-01-10 20:55 | DI.RAD_ITS ---
EXAM: XR PORTABLE CHEST AP CLINICAL HISTORY: SOB TECHNIQUE: COMPARISON: CR CHEST 2 VIEWS PA,LAT from 11/03/2013 FINDINGS: The heart is not enlarged. Lungs are grossly clear and mildly hyperinflated. No pleural effusion on this frontal film. No pneumothorax. IMPRESSION: No evidence of acute process. RADIATION DOSE DELIVERED: Total DLP
--- NOTE | 2020-01-10 21:05 | DI.VRAD_ITS ---
PROCEDURE INFORMATION: Exam: XR Chest, 1 View Exam date and time: 01/10/2020 8:56 PM Age: 34 years old Clinical indication: Shortness of breath TECHNIQUE: Imaging protocol: XR of the chest Views: 1 view. COMPARISON: CR CHEST 2 VIEWS PA,LAT 11/03/2013 6:34 PM FINDINGS: Lungs: Hyperinflation. No consolidation. Pleural space: Unremarkable. No pleural effusion. No pneumothorax. Heart/Mediastinum: Unremarkable. No cardiomegaly. Diaphragm: Eventrations of the hemidiaphragms. Bones/joints: Unremarkable. IMPRESSION: Hyperinflation of the lungs. Dictated and Authenticated by: Chidi Maldonado MD. Ordering:MEGA Jade MD
[2020-01-10 21:14] LABS: ALT 27 U/L (14-59); AST 28 U/L (15-37); Albumin 3.7 g/dL (3.4-5.0); Alkaline Phosphatase 97 U/L (46-116); Anion Gap 8.1 mmol/L (3-11); BUN 14 mg/dL (7-18); Bilirubin, Total 0.3 mg/dL (0.2-1.0); CO2 26.9 mmol/L (21.0-32.0); CREATININE 0.58 mg/dL (0.55-1.02); Calcium 9.2 mg/dL (8.5-10.1); Chloride 102 mmol/L (98-107); Glucose 94 mg/dL (74-106); Potassium 3.3 mmol/L (3.5-5.1); Sodium 137 mmol/L (136-145); Total Protein 7.9 g/dL (6.4-8.2)
--- NOTE | 2020-01-10 21:19 | NUR.NOTE ---
Nursing Note: Patient appears visibly better, reports feeling better.
[2020-01-10] MEDS: Potassium Chloride 20 MEQ TABCR PO (21:42)
[2020-01-10] MEDS: predniSONE 20 MG TAB 40 MG PO (21:44)
== END 2020-01-10 21:58 | disposition home or self-care (01) ==
PROVIDERS: Emergency Provider Physician Assistant; PCP Nurse Practitioner Family
DX: J45.901 Unspecified asthma with (acute) exacerbation (principal); E87.6 Hypokalemia; F17.210 Nicotine dependence, cigarettes, uncomplicated; Z79.899 Other long term (current) drug therapy
CPT/HCPCS: 80053; 96360; 99284; 71045; 85025; 85379; J7512

== ENCOUNTER 2020-02-12 10:44 | Emergency (ER) | payer MEDICAID, SELFPAY ==
--- NOTE | 2020-02-12 10:46 | ED.GENADUL_ITS ---
Discharge Plan Disposition Patient Disposition: HOME Condition: Stable Discharge Details Clinical Impression: Forehead contusion, Head injury, closed, without LOC Primary Care Provider: Antonette Khan ED Provider: Caprice Brown Home Meds and New Rx's Prescriptions: Continued Mirena 20 mcg/24 hr (5 years) intrauterine device 1 insert IY ONCE RF: 0 cyanocobalamin (vitamin B-12) 250 MCG tablet 1 tab PO DAILY Qty: 100 RF: 3 albuterol sulfate 90 mcg/actuation HFA aerosol inhaler 1 - 2 puff IH Q6H PRN (Reason: shortness of breath or wheezing) Qty: 18 RF: 6 Advair HFA 115-21 mcg/actuation HFA aerosol inhaler 2 puff IH BID Qty: 12 RF: 4 ipratropium-albuterol 0.5 mg-3 mg(2.5 mg base)/3 mL solution for nebulization 3 ml IH QID PRN (Reason: wheezing) Qty: 15 RF: 6 multivitamin [Daily Multi-Vitamin] 1 EACH tablet 1 ea PO DAILY RF: 0 albuterol sulfate 2.5 mg /3 mL (0.083 %) solution for nebulization 2.5 mg inhalation Q4H PRN (Reason: shortness of breath or wheezing) Qty: 75 RF: 0 Discharge Instructions Instructions: Head Injury (ED), Contusion in Adults (ED) Additional Instructions: Drink plenty of fluids and get plenty of rest. Take Tylenol as needed and directed for pain. Avoid excessive screen time with your phone, laptop or TV as this may worsen your headache. Follow-up with your primary care doctor in 1 week as needed. Return immediately to the emergency department with any worsening or new concerning symptoms such as worsening headache, persistent vomiting, dizziness or any other concerns. Stand Alone Forms: Work Release Discharge Data Discharge Date/Time-TO BE ENTERED AT DEPARTURE: 02/12/20 11:27 Discharge Physician: Caprice Brown Medical Decision Making 34-year-old female presents for evaluation after head injury in which she was hit by a wood panel for a pry bar into her forehead at work just prior to arrival. No LOC or vomiting. Admits to improvement of headache after ibuprofen at work. Blood pressure hypertensive, remainder vitals within normal limits. She appears nontoxic and in no acute distress. She has a 2 x 2 centimeter left forehead hematoma. She has no focal deficits. No midline cervical spine tenderness. Discussed with patient at length that considering the location of her hematoma, the lower mechanism and no other neurological findings, CT may not be indicated and she is agreeable and would rather hold on CT imaging at this time and continue to monitor herself at home and if any symptoms progress or worsen, will return immediately to the ER for further evaluation and consideration of imaging at that time. Usual and customary return precautions given prior to discharge. Medical Records Medical records reviewed: Yes I reviewed the patient's medical records. HPI General Mode of arrival: ambulatory . Date/Time Provider Initiated Documentation: 02/12/20 10:46 . Limitations to Documentation: no limitations . Information obtained by: patient . HPI Narrative: Patient is a 34-year-old female who presents to the ED for evaluation after head injury at work. Patient states a piece of wood or a pry bar directly hit her forehead while at work. She admits to headache which has been improved with ibuprofen but denies any LOC, nausea, vomiting, dizziness, visual changes, or neck pain. She denies any other injuries. Related Data Home Medications Medication Instructions Recorded Confirmed multivitamin [Daily Multi-Vitamin] 1 ea PO DAILY 11/03/13 02/12/20 cyanocobalamin (vitamin B-12) 1 tab PO DAILY #100 tab 02/05/15 02/12/20 levonorgestrel 20 mcg/24 hours (6 1 insert IY ONCE 03/11/18 02/12/20 yrs) 52 mg intrauterine device albuterol sulfate 90 mcg/actuation 1 - 2 puff IH Q6H PRN #18 gm 08/03/19 02/12/20 aerosol inhaler fluticasone propionate 115 2 puff IH BID #12 gm 08/03/19 02/12/20 mcg-salmeterol 21 mcg/actuation HFA inhaler ipratropium 0.5 mg-albuterol 3 mg 3 ml IH QID PRN #15 ml 01/04/20 02/12/20 (2.5 mg base)/3 mL nebulization soln albuterol sulfate 2.5 mg INHALATION Q4H PRN #75 ml 01/10/20 02/12/20 Previous Rx's Medication Instructions Recorded albuterol sulfate 90 mcg/actuation 1 - 2 puff IH Q6H PRN #18 gm 08/03/19 aerosol inhaler fluticasone propionate 115 2 puff IH BID #12 gm 08/03/19 mcg-salmeterol 21 mcg/actuation HFA inhaler ipratropium 0.5 mg-albuterol 3 mg 3 ml IH QID PRN #15 ml 01/04/20 (2.5 mg base)/3 mL nebulization soln albuterol sulfate 2.5 mg INHALATION Q4H PRN #75 ml 01/10/20 Allergies Allergy/AdvReac Type Severity Reaction Status Date / Time adhesive Allergy Mild faint rash Verified 02/12/20 10:57 CAT/FELINE PRODUCTS Allergy Severe Anaphylaxsi Uncoded 02/12/20 10:57 s General SAVANNAH: 3 Review of Systems All systems reviewed & are unremarkable except as noted in HPI and below Constitutional Constitutional: Reports as per HPI, Denies chills, Denies fever(s) and Reports headache(s) Eyes Eyes: Denies blurry vision ENT Ears, Nose, Mouth, and Throat: Denies dizziness, Reports headache(s), Denies sore throat and Denies throat swelling Cardiovascular Cardiovascular: Denies chest pain and Denies dyspnea Respiratory Respiratory: Denies cough and Denies dyspnea Gastrointestinal Gastrointestinal: Denies abdominal pain, Denies diarrhea and Denies vomiting Genitourinary Genitourinary: Denies hematuria and Denies dysuria Musculoskeletal Musculoskeletal: Denies back pain and Denies numbness Integumentary/Breasts Skin/Breast: Denies lesions and Denies rash Neurologic Neurologic: Denies dizziness, Reports headache(s), Denies localized weakness and Denies numbness Allergic/Immunologic Allergic/Immunologic: Denies throat swelling [facility] Medical History (Updated 02/12/20 @ 11:09 by Caprice Brown DO) Cigarette smoker Excessive drinking of alcohol Generalized anxiety disorder Hepatic steatosis Hepatitis C infection History of opioid abuse Insomnia Mild persistent asthma SALLY (obstructive sleep apnea) Mild on PSG 07/23/18 Parasomnia Surgical History History of section (~12/2010) History of colposcopy (~2003) S/P cholecystectomy (04/22/11) S/P ERCP (~04/2011) Family History Mother Alcohol abuse Father No problems noted. Sister Down syndrome Hypothyroidism Brother Asthma Brother Asthma Daughter No problems noted. Son No problems noted. Paternal Grandfather , at 87 No problems noted. Paternal Grandmother No problems noted. Maternal Grandfather No problems noted. Maternal Grandmother Diabetes Social History Smoking/Tobacco Use Status: Current every day Tobacco Type: cigarettes Tobacco: How many years used: 10 Quit status: considering quitting Second Hand Exposure: Yes Smoking risk assessment performed?: Yes Alcohol Intake: current Alcohol Intake frequency: a few times a week Alcohol type: beer and hard liquor Drug use: Current Sobriety Substance use type: former substance user, marijuana, crack/cocaine and heroin Caregiver/Support person: No Household members: significant other and children Housing: apartment Pets and animals: Yes Pets and animals: snake(s) and other Details: rat, hedgehog Sexually active: Yes Do you think of yourself as: straight/heterosexual Current gender identity: female What is your relationship status?: living with partner How often do you talk on the phone with friends or family?: twice per week How often do you get together with friends or relatives?: never How often do you attend yarsani or judaism services?: 1-3 times per year Do you belong to any clubs or organized social groups?: no Panel score (0-1 are the most socially isolated patients): 1 What type of physical activity do you participate in: other Details: work Frequency: 3-4 times per week Mariola/Evangelical: Caodaism Do you feel safe at home: Yes Do you feel safe in your relationship?: Yes History History 2 Para Hx # Term Pregnancies Multiple births Hx # Pregnancies Ectopic pregnancies AB induced Hx Number of Living Children 2 AB spontaneous Exam Const General: cooperative and healthy appearing Orientation: alert and awake HENMT Head: normal to inspection Head images: 1. 2x2cm hematoma L forehead Ears: hearing grossly normal bilaterally, external ears normal and TM's normal bilaterally General nose exam: external nose normal Face and sinus: normal facial exam Mouth: oral mucosae normal Teeth and gingiva: dentition normal Throat: posterior oropharynx normal Eyes General: appearance normal, both eyes and all related structures Eyelids: eyelids normal Pupils: PERRL EOM: EOM intact bilaterally Neck Neck: normal visual inspection Lymphatic: no lymphadenopathy noted Chest Chest: normal inspection of the chest Resp Effort & Inspection: normal respiratory effort and able to speak in complete sentences Auscultation: clear to auscultation bilaterally Cardio Rate: regular rate Rhythm: regular rhythm GI Inspection: normal to inspection Palpation: soft, not firm, no guarding, no hepatosplenomegaly, no masses and nontender Auscultation: normal bowel sounds Back/Spine/Pelvis Cervical Spine: cervical ROM normal and No cervical spinal tenderness Skin General skin exam: no rashes or lesions noted Neuro General: patient alert, patient awake and patient oriented x3 Cranial Nerves: CN's II-XI intact bilaterally Cognition: normal cognition Speech: speech normal Gait: normal gait Motor: muscle tone normal throughout Sensory Exam: no sensory deficits noted Extrem General: normal to inspection, full ROM and capillary refill normal Psych Appearance: grossly normal Mental Status: mental status grossly normal Speech and Movement: speech and movement normal Affect: normal affect Thought Process: normal
[2020-02-12 10:51] VITALS: BP 183/101; PULSE 82; RESP 20; TEMP 36.5; O2SAT 97
== END 2020-02-12 11:27 | disposition home or self-care (01) ==
PROVIDERS: Emergency Provider Physician Assistant; PCP Nurse Practitioner Family
DX: S00.83XA Contusion of other part of head, initial encounter (principal); S09.90XA Unspecified injury of head, initial encounter; R51.9 Headache, unspecified; W20.8XXA Other cause of strike by thrown, projected or falling object, initial encounter; Y99.0 Civilian activity done for income or pay; R03.0 Elevated blood-pressure reading, without diagnosis of hypertension
CPT/HCPCS: 99282; 99283

== ENCOUNTER 2020-07-04 03:32 | Outpatient (CLI) | payer MEDICAID, SELFPAY ==
[2020-07-05 10:00] LABS: COVID-19 RT-PCR UVMMC Result Negative (Negative)
== END 2020-07-04 03:33 | disposition home or self-care (01) ==
PROVIDERS: PCP Nurse Practitioner Family; Visit Provider Nurse Practitioner Family
DX: Z20.822 Contact with and (suspected) exposure to COVID-19 (principal)
CPT/HCPCS: U0003

== ENCOUNTER 2020-07-07 17:09 | Emergency (ER) | payer MEDICAID, SELFPAY ==
--- NOTE | 2020-07-07 17:15 | DI.RAD_ITS ---
EXAM: XR CHEST 2V PA LATERAL CLINICAL HISTORY: cough, rule out pneumonia. TECHNIQUE: 2D digital imaging was performed. COMPARISON: CR,XR XR PORTABLE CHEST AP from 01/10/2020 FINDINGS: Heart size is normal. The mediastinum is not widened. Lungs are clear. No infiltrates nor pleural effusions. Mild hyperinflation. IMPRESSION: No acute pulmonary findings.No significant change compared 01/10/2020. DATA REPOSITORY: RADIATION DOSE DELIVERED:
[2020-07-07 17:16] VITALS: BP 139/102; PULSE 97; RESP 24; TEMP 36.6; O2SAT 92
--- NOTE | 2020-07-07 17:28 | ED.GENADUL_ITS ---
Discharge Plan Disposition Patient Disposition: HOME Condition: Good Discharge Details Clinical Impression: Acute asthma exacerbation Primary Care Provider: Antonette Khan ED Provider: Messi Zhu Home Meds and New Rx's Prescriptions: New prednisone 50 MG tablet 50 mg PO DAILY Qty: 5 RF: 0 Continued Mirena 20 mcg/24 hr (5 years) intrauterine device 1 insert IY ONCE RF: 0 cyanocobalamin (vitamin B-12) 250 MCG tablet 1 tab PO DAILY Qty: 100 RF: 3 Advair HFA 115-21 mcg/actuation HFA aerosol inhaler 2 puff IH BID Qty: 12 RF: 4 ipratropium-albuterol 0.5 mg-3 mg(2.5 mg base)/3 mL solution for nebulization 3 ml IH QID PRN (Reason: wheezing) Qty: 15 RF: 6 albuterol sulfate 90 mcg/actuation HFA aerosol inhaler 2 puff IH Q6H PRN (Reason: shortness of breath or wheezing) Qty: 18 RF: 6 prednisone 20 mg tablet 40 mg PO DAILY Qty: 20 RF: 0 multivitamin [Daily Multi-Vitamin] 1 EACH tablet 1 ea PO DAILY RF: 0 albuterol sulfate 2.5 mg /3 mL (0.083 %) solution for nebulization 2.5 mg inhalation Q4H PRN (Reason: shortness of breath or wheezing) Qty: 75 RF: 0 Discharge Instructions Instructions: Asthma (ED) Additional Instructions: At this time your x-ray shows no evidence of pneumonia. Please take the prednisone as directed. It has been sent to your pharmacy. Please continue to take your DuoNeb nebulizer treatments every 4-6 hours. Avoid any Tylenol or Motrin as this can worsen asthma. If you notice any worsening of your symptoms, or any new symptoms such as vomiting, diarrhea, fever, chills, shortness of breath, chest pain, numbness, weakness, or fainting , please return immediately to the emergency department for reevaluation. Please follow up with your primary care provider as soon as possible for reassessment and reevaluation. As always, it was a pleasure participating in your medical care today. Medical Decision Making 34-year-old female with a past medical history of obstructive sleep apnea, hepatitis C, chronic cigarette use, who presents today for shortness of breath. For the last week she has had a mild cough with productive white sputum, and shortness of breath. She has been taking her inhalers with slight improvement and then subsequently transitioned to her nebulizer with mild improvement. Unfortunately her symptoms persist. She denies fever or chills. She did have a recent Covid test just 3 days ago and this was negative. She denies any severe chest pain, tearing or ripping sensation, vomiting, or other sick contacts. She continues to use tobacco. No other complaints at this time. No other modifying factors Physical exam demonstrates diffuse wheezes throughout, however the patient does demonstrate excellent oxygen saturation, otherwise stable vital signs. We will give 3 duo nebs, IM Solu-Medrol, get a chest x-ray to evaluate for pneumonia, monitor closely and reassess. Symptoms inconsistent with PE, ACS or dissection at this time. 6:37 PM X-ray results have returned normal. No acute process, no evidence of pneumonia. Patient's breathing has notably improved after breathing treatments and steroids. At this time she appears notably stable for discharge, no indication for admission as there is no hypoxemia significant tachycardia or respiratory difficulty. I do feel that the patient signs and symptoms are clinically consistent with acute asthma exacerbation. Will send home with 5 days of steroids, recommend continued nebulizers. Discussed red flags for which to return. I have extensively reviewed the treatment plan and discharge instructions with the patient. I have addressed all patient concerns at this time. The patient was made aware of what symptoms to monitor for that would warrant a return to the emergency department. Discussed the plan with the patient, they demonstrate verbal understanding and agreement with our assessment and plan at this time. The documentation in this chart was dictated using Jugo dictation software. Please excuse any dictation errors. FINDINGS: Lungs: Unremarkable. No consolidation. Pleural spaces: Unremarkable. No pleural effusion. No pneumothorax. Heart/Mediastinum: Unremarkable. No cardiomegaly. Bones/joints: Unremarkable. IMPRESSION: No acute findings. Thank you for allowing us to participate in the care of your patient. Dictated and Authenticated by: Deborah Yang MD 07/07/2020 6:15 PM Eastern Time ([place] & [place]) HPI General Date/Time Provider Initiated Documentation: 07/07/20 17:21 . HPI Narrative: 34-year-old female with a past medical history of obstructive sleep apnea, hepatitis C, chronic cigarette use, who presents today for shortness of breath. For the last week she has had a mild cough with productive white sputum, and shortness of breath. She has been taking her inhalers with slight improvement and then subsequently transitioned to her nebulizer with mild improvement. Unfortunately her symptoms persist. She denies fever or chills. She did have a recent Covid test just 3 days ago and this was negative. She denies any severe chest pain, tearing or ripping sensation, vomiting, or other sick contacts. She continues to use tobacco. No other complaints at this time. No other modifying factors. Denies PE risk factors such as recent long car rides, immobilization, recent surgery, prior history of DVT or PE, family history of PE or DVT, morbid obesity, exogenous estrogen and smoking, hemoptysis, history of cancer. Related Data Home Medications Medication Instructions Recorded Confirmed multivitamin [Daily Multi-Vitamin] 1 ea PO DAILY 11/03/13 07/07/20 cyanocobalamin (vitamin B-12) 1 tab PO DAILY #100 tab 02/05/15 07/07/20 levonorgestrel 20 mcg/24 hours (6 1 insert IY ONCE 03/11/18 07/07/20 yrs) 52 mg intrauterine device fluticasone propionate 115 2 puff IH BID #12 gm 08/03/19 07/07/20 mcg-salmeterol 21 mcg/actuation HFA inhaler albuterol sulfate 2.5 mg INHALATION Q4H PRN #75 ml 01/10/20 07/07/20 albuterol sulfate 90 mcg/actuation 2 puff IH Q6H PRN #18 g 04/15/20 07/07/20 aerosol inhaler ipratropium 0.5 mg-albuterol 3 mg 3 ml IH QID PRN #15 ml 04/15/20 07/07/20 (2.5 mg base)/3 mL nebulization soln prednisone 20 mg tablet 40 mg PO DAILY #20 tab 05/13/20 prednisone 50 mg PO DAILY #5 tab 07/07/20 Previous Rx's Medication Instructions Recorded fluticasone propionate 115 2 puff IH BID #12 gm 08/03/19 mcg-salmeterol 21 mcg/actuation HFA inhaler albuterol sulfate 2.5 mg INHALATION Q4H PRN #75 ml 01/10/20 albuterol sulfate 90 mcg/actuation 2 puff IH Q6H PRN #18 g 04/15/20 aerosol inhaler ipratropium 0.5 mg-albuterol 3 mg 3 ml IH QID PRN #15 ml 04/15/20 (2.5 mg base)/3 mL nebulization soln prednisone 20 mg tablet 40 mg PO DAILY #20 tab 05/13/20 prednisone 50 mg PO DAILY #5 tab 07/07/20 Allergies Allergy/AdvReac Type Severity Reaction Status Date / Time adhesive Allergy Mild faint rash Verified 02/12/20 10:57 CAT/FELINE PRODUCTS Allergy Severe Anaphylaxsi Uncoded 02/12/20 10:57 s General Stated Complaint: SOB SAVANNAH: 3 Review of Systems All systems reviewed & are unremarkable except as noted in HPI and below PFSH Medical History (Updated 07/07/20 @ 18:43 by Messi Zhu DO) Cigarette smoker Excessive drinking of alcohol Generalized anxiety disorder Hepatic steatosis Hepatitis C infection History of opioid abuse Insomnia Mild persistent asthma SALLY (obstructive sleep apnea) Mild on PSG 07/23/18 Parasomnia Surgical History History of section (~12/2010) History of colposcopy (~2003) S/P cholecystectomy (04/22/11) S/P ERCP (~04/2011) Family History Mother Alcohol abuse Father No problems noted. Sister Down syndrome Hypothyroidism Brother Asthma Brother Asthma Daughter No problems noted. Son No problems noted. Paternal Grandfather , at 87 No problems noted. Paternal Grandmother No problems noted. Maternal Grandfather No problems noted. Maternal Grandmother Diabetes Social History Smoking/Tobacco Use Status: Former Tobacco Use Tobacco: How many years used: 10 Quit status: considering quitting Second Hand Exposure: Yes Smoking risk assessment performed?: Yes Alcohol Intake: current Alcohol Intake frequency: a few times a week Alcohol type: beer and hard liquor Drug use: Current Sobriety Substance use type: former substance user, marijuana, crack/cocaine and heroin Caregiver/Support person: No Household members: significant other and children Housing: apartment Pets and animals: Yes Pets and animals: snake(s) and other Details: rat, hedgehog Sexually active: Yes Do you think of yourself as: straight/heterosexual Current gender identity: female What is your relationship status?: living with partner How often do you talk on the phone with friends or family?: twice per week How often do you get together with friends or relatives?: never How often do you attend cheondoism or hinduism services?: 1-3 times per year Do you belong to any clubs or organized social groups?: no Panel score (0-1 are the most socially isolated patients): 1 What type of physical activity do you participate in: other Details: work Frequency: 3-4 times per week Mariola/Presybeterian: Confucianist Do you feel safe at home: Yes Do you feel safe in your relationship?: Yes History History 2 Para Hx # Term Pregnancies Multiple births Hx # Pregnancies Ectopic pregnancies AB induced Hx Number of Living Children 2 AB spontaneous Exam Narrative Exam Narrative: 1.Const: Well-nourished, Well-developed, appearing stated age 2.Eyes: PERRL, no conjunctival injection, and symmetrical lids. 3.ENT: Atraumatic external nose and ears. Moist MM. Neck: Symmetric, trachea midline, No thyromegaly. 4.CVS: +S1/S2, No murmurs or gallops. Peripheral pulses 2+ and equal in all extremities. Brisk capillary refill in all extremities. 5.RESP: Unlabored respiratory effort. Notable wheezes throughout. No rales or rhonchi. 6.GI: Soft, Nontender/Nondistended, No hepatosplenomegaly. No guarding or rebound. 7.MSK: Normocephalic/Atraumatic, Extremities w/o deformity or ttp No cyanosis or clubbing, Normal movement of all extremities. No calf tenderness 8.Skin: Warm, Dry. No rashes or lesions. 9.Neuro: regulatory internship II-XII grossly intact. Sensation grossly intact, no focal ne urologic deficits. 10.Psych: (AAO) x3. Appropriate mood and affect Course Vital Signs Vital signs: Vital Signs Temperature 36.6 C 07/07/20 17:16 Pulse 97 H 07/07/20 17:16 Respiratory Rate 24 07/07/20 17:16 Blood Pressure 139/102 H 07/07/20 17:16 Pulse Oximetry 92 07/07/20 17:16 Temperature 36.6 C 07/07/20 17:16 Temperature Source Skin 07/07/20 17:16 Pulse 97 H 07/07/20 17:16 Respiratory Rate 24 07/07/20 17:16 Respiratory Effort 07/07/20 17:21 Blood Pressure 139/102 H 07/07/20 17:16 Blood Pressure Position Sitting 07/07/20 17:16 Pulse Oximetry 92 07/07/20 17:16 Oxygen Delivery Method Room Air 07/07/20 17:16 Oxygen Flow Rate 0 07/07/20 17:16
[2020-07-07] MEDS: Albuterol/Ipratropium 3 ML UPD VIAL (17:32)
[2020-07-07] MEDS: methylPREDNISolone SUCC 125 MG VIAL IM (17:39)
--- NOTE | 2020-07-07 18:15 | DI.VRAD_ITS ---
PROCEDURE INFORMATION: Exam: XR Chest Exam date and time: 07/07/2020 5:27 PM Age: 34 years old Clinical indication: Other: Cough/rule out pneumonia TECHNIQUE: Imaging protocol: XR of the chest. Views: 2 views. COMPARISON: CR XR PORTABLE CHEST AP 01/10/2020 8:46 PM FINDINGS: Lungs: Unremarkable. No consolidation. Pleural spaces: Unremarkable. No pleural effusion. No pneumothorax. Heart/Mediastinum: Unremarkable. No cardiomegaly. Bones/joints: Unremarkable. IMPRESSION: No acute findings. Dictated and Authenticated by: Deborah Yang MD. Ordering:CONRADO Swenson MD
[2020-07-07 18:44] VITALS: BP 123/72; PULSE 103; RESP 20; TEMP 37.3; O2SAT 94
== END 2020-07-07 19:08 | disposition home or self-care (01) ==
PROVIDERS: Emergency Provider Student in an Organized Health Care Education/Training Program; PCP Nurse Practitioner Family
DX: R06.02 Shortness of breath (principal); J45.901 Unspecified asthma with (acute) exacerbation; F17.210 Nicotine dependence, cigarettes, uncomplicated
CPT/HCPCS: 81025; 94640; 96372; 99284; 71046; 99285; J2930; J7620

== ENCOUNTER 2021-07-09 19:21 | Emergency (ER) | payer MEDICAID, SELFPAY ==
[2021-07-09] VITALS (10 sets, daily range): BP systolic 111–136; BP diastolic 68–92; PULSE 88–99; RESP 14–27; TEMP 36.6; O2SAT 96–98
--- NOTE | 2021-07-09 19:39 | W.ED.GENAD ---
Discharge Plan Disposition Patient Disposition: HOME Condition: Good Discharge Details Clinical Impression: Mild persistent asthma Primary Care Provider: Antonette Khan ED Provider: Enrique Obrien Home Meds and New Rx's Prescriptions: New prednisone 20 mg tablet 20 mg PO DAILY Qty: 7 0RF azithromycin 250 mg tablet 250 mg PO DAILY 4 Days Qty: 4 0RF Rx Instructions: start on day 2 of therapy No Action Mirena 20 mcg/24 hr (5 years) intrauterine device 1 insert IY ONCE 0RF Label Comments: Inserted 06/17/15 cyanocobalamin (vitamin B-12) 250 MCG tablet 1 tab PO DAILY Qty: 100 3RF albuterol sulfate 2.5 mg /3 mL (0.083 %) solution for nebulization 2.5 mg inhalation Q4H PRN (Reason: shortness of breath or wheezing) Qty: 75 4RF Advair HFA 115-21 mcg/actuation HFA aerosol inhaler 2 puff IH BID Qty: 12 4RF Rx Instructions: 2 puffs twice a day, administer with spacer albuterol sulfate 90 mcg/actuation HFA aerosol inhaler 2 puff IH Q6H PRN (Reason: shortness of breath or wheezing) Qty: 18 6RF ipratropium-albuterol 0.5 mg-3 mg(2.5 mg base)/3 mL solution for nebulization 3 ml IH QID PRN (Reason: wheezing) Qty: 15 6RF multivitamin [Daily Multi-Vitamin] 1 EACH tablet 1 ea PO DAILY 0RF Discharge Instructions Instructions: Asthma (ED) Additional Instructions: Please continue fluids Continue taking your regular medications Please follow-up with your primary care next week Discharge Data Discharge Date/Time-TO BE ENTERED AT DEPARTURE: 07/09/21 20:29 HPI General Date/Time Provider Initiated Documentation: 07/09/21 19:24. HPI Narrative: 55-year-old lady presented to the emergency room for evaluation of persistent cough x1 week. Cough is productive. Greenish secretions. Intermittent. She is also having some exacerbations. She uses her nebulizer at home 3 times per day in the evenings and during the day has been using her MDI. She does not recall having any significant wheezing the past week but she has had some cough and some shortness of breath. No fevers no chills. No nausea no vomiting. She is also complaining of right-sided upper chest wall pain. She does not believe this is secondary to any trauma or to any excessive coughing. She has tested herself twice for COVID this week and both tested negative Related Data Home Medications Medication Instructions Recorded Confirmed multivitamin (Daily Multi-Vitamin) 1 ea PO DAILY 11/03/13 07/09/21 cyanocobalamin (vitamin B-12) 250 1 tab PO DAILY #100 tab 02/05/15 07/09/21 mcg tablet levonorgestrel 20 mcg/24 hours (7 1 insert IY ONCE 03/11/18 07/09/21 yrs) 52 mg intrauterine device (Mirena) albuterol sulfate 2.5 mg (3 mL) INHALATION Q4H PRN 10/11/20 07/09/21 #75 ml fluticasone propionate 115 2 puff IH BID #12 gm 10/23/20 07/09/21 mcg-salmeterol 21 mcg/actuation HFA inhaler (Advair HFA) albuterol sulfate 90 mcg/actuation 2 puff IH Q6H PRN #18 g 07/03/21 07/09/21 aerosol inhaler ipratropium 0.5 mg-albuterol 3 mg 3 ml IH QID PRN #15 ml 07/03/21 07/09/21 (2.5 mg base)/3 mL nebulization soln azithromycin 250 mg tablet 250 mg PO DAILY 4 Days #4 tab 07/09/21 prednisone 20 mg tablet 20 mg PO DAILY #7 tab 07/09/21 Previous Rx's Medication Instructions Recorded albuterol sulfate 2.5 mg (3 mL) INHALATION Q4H PRN 10/11/20 #75 ml fluticasone propionate 115 2 puff IH BID #12 gm 10/23/20 mcg-salmeterol 21 mcg/actuation HFA inhaler (Advair HFA) albuterol sulfate 90 mcg/actuation 2 puff IH Q6H PRN #18 g 07/03/21 aerosol inhaler ipratropium 0.5 mg-albuterol 3 mg 3 ml IH QID PRN #15 ml 07/03/21 (2.5 mg base)/3 mL nebulization soln azithromycin 250 mg tablet 250 mg PO DAILY 4 Days #4 tab 07/09/21 prednisone 20 mg tablet 20 mg PO DAILY #7 tab 07/09/21 Allergies Allergy/AdvReac Type Severity Reaction Status Date / Time adhesive Allergy Mild faint rash Verified 07/09/21 19:30 CAT/FELINE PRODUCTS Allergy Severe Anaphylaxsi Uncoded 07/09/21 19:30 s General Stated Complaint: RespSymp SAVANNAH: 3 Review of Systems Narrative: All systems reviewed & are unremarkable except as noted in HPI and below PFSH All Active Problems (Updated 07/09/21 @ 20:14 by Enrique Obrien MD) COVID-19 (Acute ~03/18/21) SALLY (obstructive sleep apnea) (Chronic) Mild on PSG 07/23/18 Mild persistent asthma (Chronic) Hepatitis C infection (Chronic) Parasomnia (Chronic) Insomnia (Chronic) Generalized anxiety disorder (Chronic) Excessive drinking of alcohol (Chronic) IUD surveillance (Chronic) Mirena IUD 06/17/15 Cigarette smoker (Chronic) Medical History (Updated 07/09/21 @ 20:14 by Enrique Obrien MD) History of opioid abuse Surgical History History of section (~12/2010) History of colposcopy (~2003) S/P cholecystectomy (04/22/11) S/P ERCP (~04/2011) Family History Mother Alcohol abuse Father No problems noted. Sister Down syndrome Hypothyroidism Brother Asthma Brother Asthma Daughter No problems noted. Son No problems noted. Paternal Grandfather , at 87 No problems noted. Paternal Grandmother No problems noted. Maternal Grandfather No problems noted. Maternal Grandmother Diabetes Social History (Updated 10/29/20 @ 14:15 by Joelle Hathaway) Smoking/Tobacco Use Status: Current every day Tobacco Type: smokeless tobacco Smokeless tobacco user: dissolvable tobacco Quit status: considering quitting Second Hand Exposure: Yes Smoking risk assessment performed?: Yes Alcohol Intake: current Alcohol Intake frequency: a few times a week Alcohol type: beer Drug use: Current Sobriety Substance use type: former substance user, marijuana, crack/cocaine and heroin Details: Velos tobacco product. Caregiver/Support person: No Household members: significant other and children Housing: apartment Communication Needs: None Do you need help understanding health information?: Rarely Pets and animals: Yes Pets and animals: dog(s) and snake(s) Sexually active: Yes Do you think of yourself as: straight/heterosexual Current gender identity: female What is your relationship status?: living with partner How often do you talk on the phone with friends or family?: three or more times per week How often do you get together with friends or relatives?: once per week How often do you attend oriental orthodox or bahai services?: decline to answer Do you belong to any clubs or organized social groups?: no Panel score (0-1 are the most socially isolated patients): 2 What type of physical activity do you participate in: none Mariola/Oriental Orthodox: Advent Seatbelt use: always History History 2 Para Hx # Term Pregnancies Multiple births Hx # Pregnancies Ectopic pregnancies AB induced Hx Number of Living Children 2 AB spontaneous Exam Narrative Exam Narrative: ?1.Const: Well-nourished, Well-developed, appearing stated age 2.Eyes: PERRL, no conjunctival injection, and symmetrical lids. 3.ENT: Atraumatic external nose and ears. Moist MM. Neck: Symmetric, trachea midline, No thyromegaly. 4.CVS: +S1/S2, No murmurs or gallops. Peripheral pulses 2+ and equal in all extremities.? Brisk capillary refill in all extremities. 5.RESP: Unlabored respiratory effort.? Notable wheezes throughout.? No rales or rhonchi. 6.GI: Soft, Nontender/Nondistended, No hepatosplenomegaly.? No guarding or rebound. 7.MSK: Normocephalic/Atraumatic, Extremities w/o deformity or ttp No cyanosis or clubbing, Normal movement of all extremities.? No calf tenderness 8.Skin: Warm, Dry. No rashes or lesions. 9.Neuro: reed or wind instrument repairer II-XII grossly intact. Sensation grossly intact, no focal neurologic deficits. 10.Psych: (AAO) x3. Appropriate mood and affect Course cxr did not reveal any abnormalities. patient dx with asthma aexacerbation - this couldbe related to her working in a very [place] envirionment . She did stop smoking apporx 2 years ago since thenshe has had less ofthis episodes. plan outpt steroids and short course of abx - pcp follow up Vital Signs Vital signs: Vital Signs Temperature 36.6 C 07/09/21 19:27 Pulse 99 H 07/09/21 19:27 Respiratory Rate 16 07/09/21 19:27 Blood Pressure 133/92 H 07/09/21 19:27 Pulse Oximetry 98 07/09/21 19:27 Temperature 36.6 C 07/09/21 19:27 Temperature Source Skin 07/09/21 19:27 Pulse 99 H 07/09/21 19:27 Respiratory Rate 21 07/09/21 19:38 Respiratory Effort Non-Labored 07/09/21 19:38 Respiratory Depth Normal 07/09/21 19:38 Respiratory Pattern Normal 07/09/21 19:38 Blood Pressure 133/92 H 07/09/21 19:27 Blood Pressure Position Sitting 07/09/21 19:27 Pulse Oximetry 98 07/09/21 19:27 Oxygen Delivery Method Room Air 07/09/21 19:27 Oxygen Flow Rate 0 07/09/21 19:27 Pain Level 4 07/09/21 19:27 PAWSS Have you Been Recently Intoxicated or Drunk Within the Last 30 days?: No Have you Ever Experienced Previous Episodes of Alcohol Withdrawal?: No Have you ever Experienced Withdrawal Seizures?: No Have you ever Experienced Delirium Tremens(DT)s?: No Have you ever undergone Alcohol Rehabilitation Treatment (i.e, inpt ot outpatient treatment programs)?: No Have you ever Experienced Blackouts?: No Have you ever Combined Alcohol with other Downers within the last 90 days?: No Have you ever Combined Alcohol with any other Substance of Abuse during the last 90 days?: No Positive Blood Alcohol level on Presentation? [PCS.BAL]: No Evidence of Increased Autonomic Activity (i.e. HR>120, tremor, sweating, agitation, nausea)?: No Result: 0
--- NOTE | 2021-07-09 19:45 | DI.RAD_ITS ---
Exam(s) XR CHEST 2V PA LATERAL EXAM: XR CHEST 2V PA LATERAL CLINICAL HISTORY: cough TECHNIQUE: COMPARISON: CR,XR XR CHEST 2V PA LATERAL from 07/07/2020 FINDINGS: Heart is not enlarged. There are areas of subtle patchy increased opacity in the right lung base not clearly present on prior examination of June 2020. Findings are suspicious for right basilar pneum onia. No pleural effusion seen. No pneumothorax identified. IMPRESSION: The appearance is suggestive of an acute right basilar pneumonia. Appropriate follow-up films sugges beth. RADIATION DOSE DELIVERED: Total DLP
[2021-07-09] MEDS: Azithromycin 250 MG TAB 500 MG PO (20:23)
[2021-07-09] MEDS: predniSONE 20 MG TAB 60 MG PO (20:23)
--- NOTE | 2021-07-09 20:43 | DI.VRAD_ITS ---
PROCEDURE INFORMATION: Exam: XR Chest Exam date and time: 07/09/2021 7:59 PM Age: 35 years old Clinical indication: Cough TECHNIQUE: Imaging protocol: XR of the chest. Views: 2 views. COMPARISON: CR XR CHEST 2V PA LATERAL 07/07/2020 5:59 PM FINDINGS: Subtle ground-glass opacification in the right lung base on the frontal view. Mild bilateral segmental bronchial wall thickening. Remainder of the lungs are clear. Normal pleural spaces, cardiomediastinal silhouette, and central airways. No acute skeletal abnormality or aggressive osseous lesion. IMPRESSION: Question of developing airspace disease in the right lung base with associated bronchitis. Dictated and Authenticated by: Marco Staley MD. Ordering:SALAZAR Nunez MD
== END 2021-07-09 20:29 | disposition home or self-care (01) ==
PROVIDERS: Emergency Provider Emergency Medicine; PCP Nurse Practitioner Family
DX: J45.30 Mild persistent asthma, uncomplicated (principal); R05.1 Acute cough
CPT/HCPCS: 81025; 99283; 71046; J7512

== ENCOUNTER 2022-01-27 17:10 | Emergency (ER) | payer MEDICAID, SELFPAY ==
[2022-01-27 17:18] VITALS: BP 153/96; PULSE 86; RESP 18; TEMP 36.7; O2SAT 98
--- NOTE | 2022-01-27 18:00 | DI.RAD_ITS ---
Exam(s) XR CHEST 2V PA LATERAL EXAM: XR CHEST 2V PA LATERAL CLINICAL HISTORY: cough TECHNIQUE: 2D digital imaging was performed. COMPARISON: CR CHEST 2 VIEWS PA,LAT from 06/23/2011 CR,XR XR CHEST 2V PA LATERAL from 07/09/2021 FINDINGS: HEART: Normal size. Aorta: Normal diameter PULMONARY VASCULATURE: Normal. LUNGS: Mild hyper inflation. No superimposed infiltrate. PLEURAL SPACE: No pleural effusion or pneumothorax. BONE:Unremarkable for age. IMPRESSION: No acute abnormality. DATA REPOSITORY: RADIATION DOSE DELIVERED:
--- NOTE | 2022-01-27 18:04 | W.ED.GENAD ---
Discharge Plan Disposition Patient Disposition: HOME Condition: Stable Discharge Details Clinical Impression: Acute asthma exacerbation Primary Care Provider: Antonette Khan ED Provider: Randal Nick Home Meds and New Rx's Prescriptions: New prednisone 20 mg tablet 40 mg PO DAILY Qty: 8 0RF Continued Mirena 20 mcg/24 hr (5 years) intrauterine device 1 insert IY ONCE Label Comments: Inserted 06/17/15 albuterol sulfate 90 mcg/actuation HFA aerosol inhaler 2 puff IH Q6H PRN (Reason: shortness of breath or wheezing) Qty: 18 6RF ipratropium-albuterol 0.5 mg-3 mg(2.5 mg base)/3 mL solution for nebulization 3 ml IH QID PRN (Reason: wheezing) Qty: 15 6RF cyanocobalamin (vitamin B-12) 250 MCG tablet 1 tab PO DAILY Qty: 100 Advair HFA 115-21 mcg/actuation HFA aerosol inhaler 2 puff IH BID Qty: 12 4RF Rx Instructions: 2 puffs twice a day, administer with spacer multivitamin [Daily Multi-Vitamin] 1 EACH tablet 1 ea PO DAILY Discharge Instructions Instructions: Asthma (ED) Additional Instructions: Please contact your primary care physician to arrange follow-up. Please follow-up with pulmonology. Return to the ER immediately for any worsening or new concerning symptoms. Referrals: Antonette Khan NP [Primary Care Provider] - Nupur Gross MD [ [facility] STAFF PHYSICIAN] - Medical Decision Making 1799 --36-year-old female with history of asthma, here with increasing wheezing over the past week with associated cough. Patient has been treated with 2 rounds of steroid in December. Patient notes symptoms much improved while taking prednisone. Patient has taken steps to improve risk factors including cessation of smoking months ago. Patient saturating well and in no respiratory distress. She does have expiratory wheeze bilaterally on exam. Suspect acute asthma exacerbation but consider other etiologies and will obtain chest x-ray. I recommended albuterol neb and patient provided informed refusal. She is agreeable to initiating prednisone burst. Prednisone 40 mg to be administered. 1901 --chest x-ray was interpreted by radiology: Lungs with mild chronic interstitial prominence. No consolidation. No cardiomegaly. No acute findings. Plan to discharge on prednisone burst. I will refer her to follow-up with pulmonology. Usual customary discharge instructions reviewed with the patient. She understands importance of continued inhaled steroid use as well as albuterol use. HPI General Mode of arrival: ambulatory. Date/Time Provider Initiated Documentation: 01/27/22 17:37. Limitations to Documentation: no limitations. Information obtained by: patient. HPI Narrative: 36-year-old female with history of asthma, here with asthma exacerbation. Patient notes that she has had asthma flare over the past month. She has completed 2 courses of prednisone initially burst and then taper last month. She notes symptoms improve when she is on prednisone. Symptoms now worsening over the past few days. She has been using her albuterol inhaler as well as inhaled steroid. She does have associated cough with intermittently productive. No associated fever. No change. No leg swelling or calf pain. Related Data Home Medications Medication Instructions Recorded Confirmed multivitamin (Daily Multi-Vitamin 1 ea PO DAILY 11/03/13 01/27/22 tablet) cyanocobalamin (vitamin B-12) 250 1 tab PO DAILY #100 tabs 02/05/15 01/27/22 mcg tablet levonorgestrel 20 mcg/24 hours (8 1 insert intrauterine ONCE 03/11/18 01/27/22 yrs) 52 mg intrauterine device (Mirena) fluticasone propionate 115 2 puff inhalation BID #12 grams 10/08/21 01/27/22 mcg-salmeterol 21 mcg/actuation HFA inhaler (Advair HFA) albuterol sulfate 90 mcg/actuation 2 puff inhalation Q6H PRN 12/06/21 01/27/22 aerosol inhaler shortness of breath or wheezing #18 grams ipratropium 0.5 mg-albuterol 3 mg 3 ml inhalation QID PRN wheezing 12/06/21 01/27/22 (2.5 mg base)/3 mL nebulization #15 mL soln prednisone 20 mg tablet 40 mg PO DAILY #8 tabs 01/27/22 Previous Rx's Medication Instructions Recorded fluticasone propionate 115 2 puff inhalation BID #12 grams 10/08/21 mcg-salmeterol 21 mcg/actuation HFA inhaler (Advair HFA) albuterol sulfate 90 mcg/actuation 2 puff inhalation Q6H PRN 12/06/21 aerosol inhaler shortness of breath or wheezing #18 grams ipratropium 0.5 mg-albuterol 3 mg 3 ml inhalation QID PRN wheezing 12/06/21 (2.5 mg base)/3 mL nebulization #15 mL soln prednisone 20 mg tablet 40 mg PO DAILY #8 tabs 01/27/22 Allergies Allergy/AdvReac Type Severity Reaction Status Date / Time adhesive Allergy Mild faint rash Verified 01/27/22 17:24 CAT/FELINE PRODUCTS Allergy Severe Anaphylaxsi Uncoded 01/27/22 17:24 s General Stated Complaint: RespSymp SAVANNAH: 4 Review of Systems All systems reviewed & are unremarkable except as noted in HPI and below Constitutional Constitutional: Denies fever(s) Respiratory Respiratory: Reports cough and Reports wheezing Allergic/Immunologic Allergic/Immunologic: Reports wheezing PFSH All Active Problems (Updated 01/27/22 @ 19:00 by Randal Nick MD) Acute asthma exacerbation (Acute) Encounter for IUD insertion (Acute) Encounter for IUD removal (Acute) SALLY (obstructive sleep apnea) (Chronic) Mild on PSG 07/23/18 Mild persistent asthma (Chronic) Parasomnia (Chronic) Insomnia (Chronic) Generalized anxiety disorder (Chronic) Excessive drinking of alcohol (Chronic) IUD surveillance (Chronic) Mirena IUD 06/17/15, replaced 12/18/2021 Cigarette smoker (Chronic) Medical History COVID-19 (~03/18/21) Hepatitis C infection History of opioid abuse Surgical History History of section (~12/2010) History of colposcopy (~2003) S/P cholecystectomy (04/22/11) S/P ERCP (~04/2011) Family History Mother Alcohol abuse Father No problems noted. Sister Down syndrome Hypothyroidism Brother Asthma Brother Asthma Daughter No problems noted. Son No problems noted. Paternal Grandfather , at 87 No problems noted. Paternal Grandmother No problems noted. Maternal Grandfather No problems noted. Maternal Grandmother Diabetes Social History Smoking/Tobacco Use Status: Current every day Tobacco Type: smokeless tobacco Tobacco: How many years used: 20 Smokeless tobacco user: dissolvable tobacco Quit status: has quit before Second Hand Exposure: Yes Smoking risk assessment performed?: Yes Alcohol Intake: current Alcohol Intake frequency: a few times a month Alcohol type: beer Drug use: Current Sobriety Substance use type: crack/cocaine and heroin Caregiver/Support person: No Household members: significant other and children Housing: apartment Communication Needs: None Do you need help understanding health information?: Never Pets and animals: Yes Pets and animals: dog(s) and snake(s) Sexually active: Yes Do you think of yourself as: straight/heterosexual Current gender identity: female What is your relationship status?: living with partner How often do you talk on the phone with friends or family?: once per week How often do you get together with friends or relatives?: twice per week How often do you attend christian or rastafarian services?: 1-3 times per year Do you belong to any clubs or organized social groups?: no Panel score (0-1 are the most socially isolated patients): 2 What type of physical activity do you participate in: other Details: work Duration: 30-45 minutes/day Frequency: daily Mariola/Jehovah'S Witness: Caodaism Seatbelt use: always Do you feel safe at home: Yes Do you feel safe in your relationship?: Yes History History 2 Para Hx # Term Pregnancies Multiple births Hx # Pregnancies Ectopic pregnancies AB induced Hx Number of Living Children 2 AB spontaneous Exam Const General: cooperative and no acute distress HENMT Mouth: moist mucous membranes Eyes Conjunctivae: normal conjunctivae Sclera: normal sclerae Neck Neck: trachea midline and supple Resp Effort & Inspection: normal respiratory effort, able to speak in complete sentences and not labored Auscultation: no rales, no rhonchi and wheezes expiratory wheezes Cardio Rate: regular rate and not tachycardic Rhythm: regular rhythm GI Palpation: soft, not firm, no guarding, no masses, not rigid and nontender Skin General skin exam: no rashes or lesions noted Neuro General: patient alert, patient awake and tone normal Extrem General: no calf tenderness and no edema Psych Appearance: grossly normal Mental Status: mental status grossly normal Course Vital Signs Vital signs: Vital Signs Temperature 36.7 C 01/27/22 17:18 Pulse 86 01/27/22 17:18 Respiratory Rate 18 01/27/22 17:18 Blood Pressure 153/96 H 01/27/22 17:18 Pulse Oximetry 98 01/27/22 17:18 Temperature 36.7 C 01/27/22 17:18 Temperature Source Temporal Artery Scan 01/27/22 17:18 Pulse 86 01/27/22 17:18 Respiratory Rate 18 01/27/22 17:18 Respiratory Effort 01/27/22 17:29 Respiratory Depth Normal 01/27/22 17:29 Blood Pressure 153/96 H 01/27/22 17:18 Blood Pressure Position Sitting 01/27/22 17:18 Pulse Oximetry 98 01/27/22 17:18 Pain Level 0 01/27/22 17:18 PAWSS Have you Been Recently Intoxicated or Drunk Within the Last 30 days?: No Have you Ever Experienced Previous Episodes of Alcohol Withdrawal?: No Have you ever Experienced Withdrawal Seizures?: No Have you ever Experienced Delirium Tremens(DT)s?: No Have you ever undergone Alcohol Rehabilitation Treatment (i.e, inpt ot outpatient treatment programs)?: No Have you ever Experienced Blackouts?: No Have you ever Combined Alcohol with other Downers within the last 90 days?: No Have you ever Combined Alcohol with any other Substance of Abuse during the last 90 days?: No Positive Blood Alcohol level on Presentation? [PCS.BAL]: No Evidence of Increased Autonomic Activity (i.e. HR>120, tremor, sweating, agitation, nausea)?: No Result: 0
[2022-01-27] MEDS: predniSONE 20 MG TAB 40 MG PO (18:22)
--- NOTE | 2022-01-27 18:47 | DI.VRAD_ITS ---
PROCEDURE INFORMATION: Exam: XR Chest Exam date and time: 01/27/2022 6:41 PM Age: 36 years old Clinical indication: Cough and shortness of breath; Patient HX: Cough, SOB TECHNIQUE: Imaging protocol: Radiologic exam of the chest. Views: 2 views. COMPARISON: CR XR CHEST 2V PA LATERAL 07/09/2021 7:59 PM FINDINGS: Lungs: Mild chronic interstitial prominence. No consolidation. Pleural spaces: Unremarkable. No pleural effusion. No pneumothorax. Heart/Mediastinum: Unremarkable. No cardiomegaly. Bones/joints: Unremarkable. IMPRESSION: No acute findings. Dictated and Authenticated by: Jose Miguel Rajput MD. Ordering:FAUSTINO Tee MD
[2022-01-27 19:10] VITALS: BP 123/83; PULSE 85; RESP 20; O2SAT 96
== END 2022-01-27 19:12 | disposition home or self-care (01) ==
PROVIDERS: Emergency Provider Student in an Organized Health Care Education/Training Program; PCP Nurse Practitioner Family
DX: J45.901 Unspecified asthma with (acute) exacerbation (principal); R05.1 Acute cough
CPT/HCPCS: 99283; 71046; J7512

== ENCOUNTER 2022-02-20 01:49 | Outpatient (CLI) | payer MEDICAID, SELFPAY ==
[2022-02-20] MEDS: Albuterol HFA 18 GM 200 PUFF INH IH (11:36)
[2022-02-20] MEDS: Inhaler, Assist Device 1 EACH MC (11:36)
--- NOTE | 2022-02-23 14:18 | W.PFT ---
Date of service: 02/20/22 Time of Service: 10:04 Pulmonary Function Test Result Requesting Provider Antonette Khan Indications: Asthma Interpretation Spirometry: There is moderate airflow limitation. There is no significant bronchodilator response. Lung Volumes: There is air trapping Diffusion Capacity: Normal diffusion Airway Pressure: Normal airways resistance. Impression Moderate airflow obstruction with a normal diffusion and air trapping. This could represent uncontrolled asthma or chronic bronchitis (COPD). Clinical Correlation therefore is recommended.
--- NOTE | 2022-02-24 12:30 | W.PFT ---
Date of service: 02/20/22 Time of Service: 10:04 Pulmonary Function Test Result Requesting Provider Antonette Khan Indications: Asthma Interpretation Spirometry: There is moderate airflow limitation. There is no significant bronchodilator response. Lung Volumes: There is air trapping Diffusion Capacity: Normal diffusion Airway Pressure: Normal airways resistance Impression Moderate airflow limitation with air trapping and a normal diffusion. This could represent uncontrolled asthma, chronic bronchitis (COPD) or possible asthma- COPD overlap syndrome. Clinical Correlation therefore is recommended.
== END 2022-02-20 01:50 | disposition home or self-care (01) ==
LOC: RT 01:49
PROVIDERS: PCP Nurse Practitioner Family; Visit Provider Nurse Practitioner Family
DX: J45.30 Mild persistent asthma, uncomplicated (principal); J98.8 Other specified respiratory disorders
CPT/HCPCS: 94060; 94726; 94729

== ENCOUNTER 2022-02-20 12:04 | Outpatient (CLI) | payer MEDICAID, SELFPAY ==
[2022-02-20 12:11] LABS: Absolute Basophil Count 0.01 10^3/uL (0.0-0.2); Absolute Eosinophil Count 0.63 10^3/uL (0.0-0.7); Absolute Lymphocyte Count 0.75 10^3/uL (1.2-3.4); Absolute Monocyte Count 0.42 10^3/uL (0.1-0.8); Absolute Neutrophil Count 1.92 10^3/uL (1.2-6.7); Basophils % 0.3; Eosinophils % 16.9; HCT 38.9 % (36.0-46.0); HGB 13.4 g/dL (11.2-15.7); Lymphocytes % 20.1; MCH 30.4 pg (27.0-33.0); MCHC 34.4 % (32.0-36.0); MCV 88 fL (80-95); MPV 10.5 fL (8.0-11.0); Monocytes % 11.3; Neutrophils % 51.4; Platelet Count 179 10^3/uL (130-400); RBC 4.41 10^6/uL (3.93-5.22); RDW 11.9 % (11.7-14.6); RDW-SD 38.3 fL; WBC 3.73 10^3/uL (4.4-10.8)
[2022-02-20 12:31] LABS: ALT 22 U/L (14-59); AST 19 U/L (15-37); Alkaline Phosphatase 62 U/L (46-116); Anion Gap 8.5 mmol/L (3-11); BUN 10 mg/dL (7-18); Bilirubin, Total 0.3 mg/dL (0.2-1.0); CO2 28.5 mmol/L (21.0-32.0); CREATININE 0.6 mg/dL (0.55-1.02); Calcium 8.6 mg/dL (8.5-10.1); Calculated LDL 60 mg/dL (<100); Chloride 103 mmol/L (98-107); Cholesterol 151 mg/dL (<200); Estimated GFR 118.49 (mL/min/1.73m2); Glucose 96 mg/dL (74-106); HDL Cholesterol 84 mg/dL (40-60); Potassium 4.3 mmol/L (3.5-5.1); Sodium 140 mmol/L (136-145); Total Protein 7.8 g/dL (6.4-8.2); Triglyceride 39 mg/dL (<150)
[2022-02-23 10:47] LABS: Hepatitis C Ab w Rflx HCV PCR Reactive (Negative)
[2022-02-25 13:32] LABS: HCV RNA Qualitative Undetected (Undetected)
== END 2022-02-20 12:05 | disposition home or self-care (01) ==
LOC: LBO 12:04
PROVIDERS: PCP Nurse Practitioner Family; Visit Provider Nurse Practitioner Family
DX: B19.20 Unspecified viral hepatitis C without hepatic coma (principal); J45.909 Unspecified asthma, uncomplicated; Z00.00 Encounter for general adult medical examination without abnormal findings
CPT/HCPCS: 36415; 80053; 80061; 86803; 87522; 85025

== ENCOUNTER 2022-09-07 20:59 | Emergency (ER) | payer MEDICAID, SELFPAY ==
[2022-09-07 21:11] VITALS: BP 156/93; PULSE 91; RESP 18; TEMP 37; O2SAT 98
[2022-09-07 21:34] LABS: Bilirubin Negative (Negative); Blood Moderate (Negative); Clarity Sl Cloudy (Clear); Glucose Negative (Negative); Ketones Negative (Negative); Leukocyte Esterase Moderate (Negative); Nitrite Negative (Negative); Specific Gravity 1.015 (1.005-1.025)
[2022-09-07 21:48] LABS: Bacteria Few HPF (Negative); C & S Indicated? No/Sq. Contamination; Casts Negative LPF (Negative); Crystals Negative HPF (Negative); Epithelial Cells Many HPF (Negative); Mucus Negative (Negative); WBC 0-2 HPF (0-5)
--- NOTE | 2022-09-07 21:59 | ED.GENADUL_ITS ---
Discharge Plan Disposition Patient Disposition: Home Condition: Stable Discharge Details Clinical Impression: UTI (urinary tract infection) Primary Care Provider: Antontete Khan ED Provider: Moo Oconnell Home Meds and New Rx's Prescriptions: New ciprofloxacin HCl 500 mg tablet 500 mg PO BID Qty: 14 0RF Continued Mirena 20 mcg/24 hr (5 years) intrauterine device 1 insert IY ONCE Patient Comments: Inserted 06/17/15 ipratropium-albuterol 0.5 mg-3 mg(2.5 mg base)/3 mL solution for nebulization 3 ml IH QID PRN (Reason: wheezing) Qty: 15 6RF fluticasone propion-salmeterol 230-21 mcg/actuation HFA aerosol inhaler 2 inh inhalation BID Qty: 12 3RF albuterol sulfate 90 mcg/actuation HFA aerosol inhaler 2 puff IH Q6H PRN (Reason: shortness of breath or wheezing) Qty: 18 6RF cyanocobalamin (vitamin B-12) 250 MCG tablet 1 tab PO DAILY Qty: 100 multivitamin [Daily Multi-Vitamin] 1 EACH tablet 1 ea PO DAILY Discharge Instructions Instructions: Urinary Tract Infection in Women (ED) Additional Instructions: Your ultrasound did not show concerning findings at this time. Your urine showed evidence of infection if symptoms continue nikolay week follow up with your primary care provider if you feel more ill, have severe worsening pain or fevers return to the emergency department Medical Decision Making 36 yo female with no significant pmhx comes in with cc of dysuria for 3-4 days and today had some lower back discomfort. Her friend advised she may have kidney stones so she came here for an eval. She states the pain is in the bilateral lower back and is constant. No n/v, no fevers, no abdominal pain. She arrives stable speaking clearly in no distress laughing intermittently during exam. She has no cva tenderness, localizes the pain to the lumbar region. No tenderness on exam, no saddle anesthesia, no stepoffs or other deformities. She has no abdominal tenderness. I performed pocus of the kidneys and shows no evidence of hydro or stones and her history doesn't fit with stones. HEr UA does show evidence of uti, could have pyelo. She appears well, no fevers, tolerating po so do not feel labs indicated and discussed unlikely kidney stones and after discussion with her about risks of radiation will defer ct renal colic given clinical suspicion is low. She is stable for d/c, will start on cipro and have her f/u with pcp, return precautions given Differential Diagnosis Differential Diagnosis: musculoskeletal back pain, pyelo, kidney stone HPI General Mode of arrival: ambulatory . Date/Time Provider Initiated Documentation: 09/07/22 21:15 . Limitations to Documentation: no limitations . Information obtained by: patient . History of Present Illness 36 year old F presents to the emergency department with the chief complaint of back pain, described as moderate, Patient started experiencing this day(s) (1) and it has been constant. No relieving factors improve symptom(s), No exacerbating factors reported . Patient notes other (dysuria). Patient did receive the following treatments prior to arrival, none Related Data Home Medications Medication Instructions Recorded Confirmed multivitamin (Daily Multi-Vitamin 1 ea PO DAILY 11/03/13 02/04/22 tablet) cyanocobalamin (vitamin B-12) 250 1 tab PO DAILY #100 tabs 02/05/15 02/04/22 mcg tablet levonorgestrel 21 mcg/24 hours (8 1 insert intrauterine ONCE 03/11/18 02/04/22 yrs) 52 mg intrauterine device (Mirena) ipratropium 0.5 mg-albuterol 3 mg 3 ml inhalation QID PRN wheezing 12/06/21 02/04/22 (2.5 mg base)/3 mL nebulization #15 mL soln albuterol sulfate 90 mcg/actuation 2 puff inhalation Q6H PRN 02/04/22 02/04/22 aerosol inhaler shortness of breath or wheezing #18 grams fluticasone propionate 230 2 inh inhalation BID #12 grams 02/04/22 02/04/22 mcg-salmeterol 21 mcg/actuation HFA inhaler ciprofloxacin HCl 500 mg tablet 500 mg PO BID #14 tabs 09/07/22 Previous Rx's Medication Instructions Recorded ipratropium 0.5 mg-albuterol 3 mg 3 ml inhalation QID PRN wheezing 12/06/21 (2.5 mg base)/3 mL nebulization #15 mL soln albuterol sulfate 90 mcg/actuation 2 puff inhalation Q6H PRN 02/04/22 aerosol inhaler shortness of breath or wheezing #18 grams fluticasone propionate 230 2 inh inhalation BID #12 grams 02/04/22 mcg-salmeterol 21 mcg/actuation HFA inhaler ciprofloxacin HCl 500 mg tablet 500 mg PO BID #14 tabs 09/07/22 Allergies Allergy/AdvReac Type Severity Reaction Status Date / Time adhesive Allergy Mild faint rash Verified 02/04/22 14:12 CAT/FELINE PRODUCTS Allergy Severe Anaphylaxsi Uncoded 02/04/22 14:12 s General Stated Complaint: Urinary SAVANNAH: 3 Review of Systems All systems reviewed & are unremarkable except as noted in HPI and below Constitutional Constitutional: Denies chills, Denies fever(s) and Denies weakness Cardiovascular Cardiovascular: Denies chest pain and Denies dyspnea Respiratory Respiratory: Denies cough and Denies dyspnea Gastrointestinal Gastrointestinal: Denies abdominal pain, Denies nausea and Denies vomiting Integumentary/Breasts Skin/Breast: Denies rash Neurologic Neurologic: Denies weakness PFSH All Active Problems (Updated 09/07/22 @ 22:01 by Moo Oconnell MD) UTI (urinary tract infection) (Acute) Asthma (Chronic) SALLY (obstructive sleep apnea) (Chronic) Mild on PSG 07/23/18 Parasomnia (Chronic) Insomnia (Chronic) Generalized anxiety disorder (Chronic) Excessive drinking of alcohol (Chronic) IUD surveillance (Chronic) Mirena IUD replaced 12/18/2021 Cigarette smoker (Chronic) Medical History (Updated 09/07/22 @ 22:01 by Moo Oconnell MD) Acute asthma exacerbation COVID-19 (~03/18/21) Hepatitis C infection History of opioid abuse Surgical History History of section (~12/2010) History of colposcopy (~2003) S/P cholecystectomy (04/22/11) S/P ERCP (~04/2011) Family History Mother Alcohol abuse Father No problems noted. Sister Down syndrome Hypothyroidism Brother Asthma Brother Asthma Daughter No problems noted. Son No problems noted. Paternal Grandfather , at 87 No problems noted. Paternal Grandmother No problems noted. Maternal Grandfather No problems noted. Maternal Grandmother Diabetes Social History (Updated 02/04/22 @ 14:27 by NE Carrillo Smoking/Tobacco Use Status: Former Tobacco Use tobacco type: cigarettes Quit Date: 12/12/21 Pack-years: 17 Smokeless tobacco user: dissolvable tobacco Quit status: has quit before Second Hand Exposure: Yes Smoking risk assessment performed?: Yes Alcohol Intake: current Alcohol Intake frequency: a few times a month Alcohol type: beer Drug use: Current Sobriety Substance use type: crack/cocaine and heroin Caregiver/Support person: No Household members: significant other and children Housing: apartment Communication Needs: None Do you need help understanding health information?: Never Pets and animals: Yes Pets and animals: dog(s) and snake(s) Sexually active: Yes Do you think of yourself as: straight/heterosexual Current gender identity: female What is your relationship status?: living with partner How often do you talk on the phone with friends or family?: once per week How often do you get together with friends or relatives?: twice per week How often do you attend evangelical or yazdanism services?: 1-3 times per year Do you belong to any clubs or organized social groups?: no Panel score (0-1 are the most socially isolated patients): 2 What type of physical activity do you participate in: other Details: work Duration: 30-45 minutes/day Frequency: daily Mariola/Gnosticism: Adventist Seatbelt use: always Do you feel safe at home: Yes Do you feel safe in your relationship?: Yes History History 2 Para Hx # Term Pregnancies Multiple births Hx # Pregnancies Ectopic pregnancies AB induced Hx Number of Living Children 2 AB spontaneous Exam Const General: no acute distress Orientation: alert HENMT Head: normal to inspection Ears: external ears normal General nose exam: external nose normal Mouth: moist mucous membranes Eyes General: appearance normal, both eyes and all related structures Neck Neck: normal visual inspection Resp Effort & Inspection: normal respiratory effort and able to speak in complete sentences Cardio Rate: regular rate GI Palpation: soft and nontender Back/Spine/Pelvis Back: no CVA tenderness Skin General skin exam: no rashes or lesions noted Neuro General: patient alert and patient oriented x3 Extrem General: normal to inspection Psych Mental Status: mental status grossly normal Course Vital Signs Vital signs: Vital Signs Temperature 37 C 09/07/22 21:11 Pulse 91 H 09/07/22 21:11 Respiratory Rate 18 09/07/22 21:11 Blood Pressure 156/93 H 09/07/22 21:11 Pulse Oximetry 98 09/07/22 21:11 Temperature 37 C 09/07/22 21:11 Temperature Source Temporal Artery Scan 09/07/22 21:11 Pulse 91 H 09/07/22 21:11 Respiratory Rate 18 09/07/22 21:11 Respiratory Effort Normal, Non-Labored 09/07/22 21:14 Blood Pressure 156/93 H 09/07/22 21:11 Pulse Oximetry 98 09/07/22 21:11 Oxygen Delivery Method Room Air 09/07/22 21:11 Oxygen Flow Rate 0 09/07/22 21:11 Lab/Test Results Lab/Test Results: Laboratory Tests Range/Units 09/07/22 21:26 Urine Color (Yellow) Yellow Urine Clarity (Clear) Sl Cloudy Urine pH (5-8) 7.0 Ur Specific [place] (1.005-1.025) 1.015 Urine Protein (Negative) mg/dL 100 H Urine Ketones (Negative) mg/dL Negative Urine Blood (Negative) Moderate H Urine Nitrite (Negative) Negative Urine Bilirubin (Negative) Negative Urine Urobilinogen (Up to 0.2) mg/dL 1.0 H Ur Leukocyte Esterase (Negative) Moderate H Urine RBC (0-2) HPF 5-10 H Urine WBC (0-5) HPF 0-2 Ur Epithelial Cells (Negative) HPF Many Urine Crystals (Negative) HPF Negative Urine Bacteria (Negative) HPF Few Urine Casts (Negative) LPF Negative Urine Mucus (Negative) Negative Ur Culture Indicated? No/Sq. Contamination Urine Glucose (Negative) mg/dL Negative POC- Test(urine) Negative POCUS Exam (ED) Limited Retroperitoneal(Renal)Exam DATE OF EXAM: 09/07/22 TIME OF EXAM: 22:03 PROVIDER THAT PERFORMED THE STUDY: Moo Oconnell REASON FOR EXAM: Back pain/left side and Back pain/right side VISUALIZED STRUCTURES: Left kidney, Right kidney and Other structures: bladder PERTINENT FINDINGS/IMPRESSION: no hydronephrosis present and no intrarenal calculi present Exam complete
[2022-09-07] MEDS: Ciprofloxacin 500 MG TAB PO (22:05)
== END 2022-09-07 22:07 | disposition home or self-care (01) ==
PROVIDERS: Emergency Provider Emergency Medicine; PCP Nurse Practitioner Family
DX: R30.0 Dysuria (principal); N39.0 Urinary tract infection, site not specified
CPT/HCPCS: 76775; 81025; 99283; 81003; 81015

== ENCOUNTER 2022-10-30 08:52 | Outpatient (REF) | payer MEDICAID, SELFPAY ==
--- NOTE | 2022-10-30 07:00 | PAPFT_PTH ---
PATIENT: Bijal Aguirre LOC: [facility] U#:[id number] AGE/SX: 36/F ROOM: RE10/30/[address]: RYAN Carrillo : 1985 BED: DIS: 10/30/2022 SPEC #: [id number] RECD: 10/30/22 15:35 STATUS: HODA REQ #: [id number] MADAI: 10/30/22 07:[address]: Antonette Khan DEPT: [facility] Cytology RECD BY: Mena Her Tissues: 1 - CX/ENDOCX FOR PAP SMEARS Procedures: PAP THIN PREP/UVM Screening HPV DNA PROBE Comments: [id number]
== END 2022-10-30 08:53 | disposition home or self-care (01) ==
LOC: LBN 08:52
PROVIDERS: PCP Nurse Practitioner Family; Visit Provider Nurse Practitioner Family
DX: Z12.4 Encounter for screening for malignant neoplasm of cervix (principal); Z11.51 Encounter for screening for human papillomavirus (HPV)
CPT/HCPCS: 88142; 87624

== ENCOUNTER 2023-11-22 07:07 | Emergency (ER) | payer SELFPAY ==
[2023-11-22 07:09] VITALS: BP 147/85; PULSE 97; RESP 17; O2SAT 100
--- NOTE | 2023-11-22 07:15 | DI.RAD_ITS ---
Exam(s) XR CHEST 2V PA LATERAL EXAM: XR CHEST 2V PA LATERAL CLINICAL HISTORY: R. chest/shoulder pain, eval inf TECHNIQUE: 2D digital imaging was performed. Two views. COMPARISON: No exams were available for comparison FINDINGS: HEART: Normal size. Aorta: Not dilated. PULMONARY VASCULATURE: Normal. MEDIASTINUM: Unremarkable. LUNGS: Right middle lobe infiltrate. Lungs otherwise clear. PLEURAL SPACE: No pleural effusion or pneumothorax. BONE:Unremarkable for age. SOFT TISSUES: Unremarkable. IMPRESSION: Right middle lobe infiltrate. DATA REPOSITORY: RADIATION DOSE DELIVERED:
[2023-11-22 07:17] VITALS: BP 147/85; PULSE 97; RESP 17; O2SAT 100
--- NOTE | 2023-11-22 07:39 | ED.GENADUL_ITS ---
Discharge Plan Disposition Patient Disposition: Home Condition: Stable Discharge Details Clinical Impression: Community acquired pneumonia, SALLY (obstructive sleep apnea), Asthma, Encounter for screening examination for sexually transmitted infection Primary Care Provider: Antonette Khan ED Provider: Bety Becker Home Meds and New Rx's Prescriptions: New amoxicillin 500 mg capsule 1,000 mg PO TID 5 Days Qty: 30 0RF No Action Mirena 20 mcg/24 hr (5 years) intrauterine device 1 insert IY ONCE Patient Comments: Inserted 06/17/15 fluticasone propion-salmeterol 230-21 mcg/actuation HFA aerosol inhaler 2 inh inhalation DAILY Qty: 12 3RF cyanocobalamin (vitamin B-12) 250 MCG tablet 1 tab PO DAILY Qty: 100 albuterol sulfate 90 mcg/actuation HFA aerosol inhaler 2 puff IH Q6H PRN (Reason: shortness of breath or wheezing) Qty: 18 6RF ipratropium-albuterol 0.5 mg-3 mg(2.5 mg base)/3 mL solution for nebulization 3 ml IH QID PRN (Reason: wheezing) Qty: 15 6RF multivitamin [Daily Multi-Vitamin] 1 EACH tablet 1 ea PO DAILY Discharge Instructions Instructions: Community-Acquired Pneumonia, Adult (DC) Additional Instructions: You were seen in the emergency department today for evaluation of shoulder pain, fevers and chills, and chest pain. In our department you had a full physical examination performed and had a chest x-ray that was concerning for a right middle lobe pneumonia. For this reason we have started you on antibiotics, please take all of this medication until it is gone, even if you start to feel better. Your COVID, influenza, and RSV testing were negative, and you had STI screening tests that we will be available on the portal or to review with your primary care provider at your next appointment. Please continue to maintain good hydration and nutrition, use Tylenol and ibuprofen as needed for management of pain and fever, and return to the emergency department if you have any sudden or severe change or worsening of your pain, shortness of breath, or any other symptoms that cause you concern. Thank you for allowing us to be part of your care. HPI General Mode of arrival: ambulatory . Date/Time Provider Initiated Documentation: 11/22/23 07:21 . Limitations to Documentation: no limitations . Information obtained by: patient and old records reviewed . HPI Narrative: MDM: In brief, this is a 38-year-old female patient presenting for evaluation of right chest and shoulder pain as well as fevers and chills at home with cough. My differential includes but is not limited to upper respiratory infection, pneumonia, certainly considered pneumothorax, pleural effusion, reactive airway disease exacerbation though the patient is without wheezing at this time. No evidence of fluid overload on my physical examination to significantly increase my concern for pulmonary edema. I considered pulmonary embolism in this patient, though she does not take any systemic hormonal therapies, does not have any DVT symptoms, and I have a higher concern for infectious pathologies and she herself is low risk. The patient reassuringly meets PERC criteria for clinical rule out PE. She does not have a personal risk factors for ACS. Incidental mention of concern for STI was discussed, and I certainly considered sexually transmitted infection such as GC/CT, syphilis, HIV. The patient is not experiencing any symptoms of vaginitis or vaginosis, has no abdominal tenderness or concerning symptoms to increase my concern for PID/TOA, Noam-Luis Alfredo Abdulaziz syndrome, etc. Will obtain x-ray imaging of the chest, Fluvid swab, I do not see any indication at this time to proceed with dedicated shoulder injury given her reassuring exam and lack of actual shoulder girdle pain or trauma. I will obtain screening test for HIV and syphilis, as well as gonorrhea/chlamydia testing. At this time the patient is not desiring of any medications for pain management. ED Course: I independently interpreted the patient's x-ray imaging and reviewed the radiologist report, which shows right middle lobe disease, most concerning for pneumonia in the setting of the patient's pain and febrile symptoms. I did provide her with a dose of amoxicillin here in the emergency department and will prescribe a full course for community-acquired pneumonia treatment. Her COVID, influenza, and RSV testing were negative. STI testing was obtained and the patient understands that she will follow-up on the results of these studies in the outpatient environment on the portal or with her primary care provider. At this time, the patient has had a full medical evaluation and is safe for discharge to home. They are hemodynamically stable, ambulatory, and tolerating PO. They are understanding of the follow-up plan and return precautions. They left our facility without incident. Bety Becker MD HPI: This is a 38-year-old female patient with a past medical history significant for asthma, SALLY, presenting for evaluation of right shoulder and anterior chest pain. She reports that she has a very physical job, was working and lifting and felt a twinge in her chest. She states that she did not do a thing out of the ordinary, has been able to continue working and moving her shoulder without pain or difficulty, but notes that in the past when she has had pain in this area that she was often diagnosed with lung infections. She has had some exposure to dust and has needed to use her albuterol inhaler but otherwise her asthma has been at its baseline level of control. The patient reports that she had a recent sick exposure to her daughter who had a viral illness, states that she had some stuffiness of her nose and an intermittent sore throat that is not currently present. She states that she did note subjective fevers and chills last night, prompting her presentation to care. The patient separately remarks that she is concerned for STI exposure over the past several months from her ex-, and requests STI screening as her next visit with her primary care provider is not until February. She states that she is from her and feels safe in her home, but during their relationship he was unfaithful and having sexual encounters with other people. She states that she is not experiencing any new or concerning vaginal discharge, dysuria, hematuria, pelvic pain, but wants to be sure that she has not been exposed to any STIs. She uses an IUD for prevention. Exam: Gen: Awake and alert, in no apparent distress HEENT: Non-icteric sclera Neck: Supple Lungs: No apparent respiratory distress, normal respiratory effort. Lung sounds clear and equal bilaterally CV: Appears well perfused, heart with regular rate and rhythm, strong and symmetrical distal pulses. Right chest wall with no significant reproduction of tenderness to palpation, no overlying skin changes Abdomen: Non-distended, soft, nontender MSK: Moves 4 extremities without apparent limitation in ROM. The patient has full range of motion of her shoulder without reproduction of pain, rotator cuff testing to include empty can, Humphries, liftoff without reproduction of pain. No tenderness over the biceps tendon Skin: Visualized skin without rashes, cyanosis. Neuro: Normal Gait, no obvious focal deficits or facial asymmetry. Speaks in full, clear sentences. Psych: Appropriate for situation. Related Data Home Medications ?Medication ?Instructions ?Recorded ?Confirmed multivitamin (Daily Multi-Vitamin 1 ea PO DAILY 11/03/13 11/22/23 tablet) cyanocobalamin (vitamin B-12) 250 1 tab PO DAILY #100 tabs 02/05/15 11/22/23 mcg tablet levonorgestrel 21 mcg/24 hr (up to 1 insert intrauterine ONCE 03/11/18 11/22/23 8 years) 52 mg intrauterine device (Mirena) fluticasone propionate 230 2 inh inhalation DAILY #12 grams 10/30/22 11/22/23 mcg-salmeterol 21 mcg/actuation HFA inhaler albuterol sulfate 90 mcg/actuation 2 puff inhalation Q6H PRN 05/26/23 11/22/23 aerosol inhaler shortness of breath or wheezing #18 grams ipratropium 0.5 mg-albuterol 3 mg 3 ml inhalation QID PRN wheezing 05/26/23 11/22/23 (2.5 mg base)/3 mL nebulization #15 mL soln amoxicillin 500 mg capsule 1,000 mg (2 x 500 mg) PO TID 5 11/22/23 days #30 caps Previous Rx's ?Medication ?Instructions ?Recorded fluticasone propionate 230 2 inh inhalation DAILY #12 grams 10/30/22 mcg-salmeterol 21 mcg/actuation HFA inhaler albuterol sulfate 90 mcg/actuation 2 puff inhalation Q6H PRN 05/26/23 aerosol inhaler shortness of breath or wheezing #18 grams ipratropium 0.5 mg-albuterol 3 mg 3 ml inhalation QID PRN wheezing 05/26/23 (2.5 mg base)/3 mL nebulization #15 mL soln amoxicillin 500 mg capsule 1,000 mg (2 x 500 mg) PO TID 5 11/22/23 days #30 caps Allergies Allergy/AdvReac Type Severity Reaction Status Date / Time adhesive Allergy Mild faint rash Verified 11/22/23 07:14 CAT/FELINE PRODUCTS Allergy Severe Anaphylaxsi Uncoded 11/22/23 07:14 s General Stated Complaint: RespSymp SAVANNAH: 4 Course Vital Signs Vital signs: Vital Signs Pulse 97 H 11/22/23 07:09 Respiratory Rate 17 09/09/24 07:09 Blood Pressure 147/85 H 11/22/23 07:09 Pulse Oximetry 100 11/22/23 07:09 Pulse 97 H 11/22/23 07:17 Respiratory Rate 17 11/22/23 07:17 Respiratory Effort Normal 11/22/23 07:17 Respiratory Depth Normal 11/22/23 07:17 Blood Pressure 147/85 H 11/22/23 07:17 Pulse Oximetry 100 11/22/23 07:17 Pain Level 7 11/22/23 07:17 Medical Decision Making Quality:SDOH Health Related Social Needs: No Data to Display PFSH All Active Problems (Updated 11/22/23 @ 09:01 by Bety Becker MD) Encounter for screening examination for sexually transmitted infection (Acute) Community acquired pneumonia (Acute) Asthma (Chronic) SALLY (obstructive sleep apnea) (Chronic) Mild on PSG 07/23/18 Parasomnia (Chronic) Insomnia (Chronic) Generalized anxiety disorder (Chronic) IUD surveillance (Chronic) Mirena IUD replaced 12/18/2021 Medical History Cigarette smoker COVID-19 (~03/18/21) Hepatitis C infection History of opioid abuse Surgical History History of section (~12/2010) History of colposcopy (~2003) S/P cholecystectomy (04/22/11) S/P ERCP (~04/2011) Family History Mother Alcohol abuse Father No problems noted. Sister Down syndrome Hypothyroidism Brother Asthma Brother Asthma Daughter No problems noted. Son No problems noted. Paternal Grandfather , at 87 No problems noted. Paternal Grandmother No problems noted. Maternal Grandfather No problems noted. Maternal Grandmother Diabetes Social History Smoking/Tobacco Use Status: Current every day Tobacco Type: smokeless tobacco Tobacco: How many years used: 22 Smokeless tobacco user: dissolvable tobacco Quit status: considering quitting Second Hand Exposure: Yes Smoking risk assessment performed?: Yes Alcohol Intake: current Alcohol Intake frequency: a few times a month Alcohol type: beer Drug use: Current Sobriety Substance use type: crack/cocaine and heroin Caregiver/Support person: No Household members: significant other and children Housing: apartment Communication Needs: None Do you need help understanding health information?: Never Pets and animals: Yes Pets and animals: dog(s) and snake(s) Sexually active: Yes Do you think of yourself as: straight/heterosexual Current gender identity: female What is your relationship status?: living with partner How often do you talk on the phone with friends or family?: once per week How often do you get together with friends or relatives?: twice per week How often do you attend congregation or confucianist services?: 1-3 times per year Do you belong to any clubs or organized social groups?: no Panel score (0-1 are the most socially isolated patients): 2 What type of physical activity do you participate in: other Details: work Duration: 30-45 minutes/day Frequency: daily Mariola/Jew: Mosque Seatbelt use: always Do you feel safe at home: Yes Do you feel safe in your relationship?: Yes History History 2 Para Hx # Term Pregnancies Multiple births Hx # Pregnancies Ectopic pregnancies AB induced Hx Number of Living Children 2 AB spontaneous PAWSS Have you Been Recently Intoxicated or Drunk Within the Last 30 days?: No Have you Ever Experienced Previous Episodes of Alcohol Withdrawal?: No Have you ever Experienced Withdrawal Seizures?: No Have you ever Experienced Delirium Tremens(DT)s?: No Have you ever undergone Alcohol Rehabilitation Treatment (i.e, inpt ot outpatient treatment programs)?: No Have you ever Experienced Blackouts?: No Have you ever Combined Alcohol with other Downers within the last 90 days?: No Have you ever Combined Alcohol with any other Substance of Abuse during the last 90 days?: No Result: 0
--- NOTE | 2023-11-22 08:26 | DI.VRAD_ITS ---
PROCEDURE INFORMATION: Exam: XR Chest Exam date and time: 11/22/2023 8:13 AM Age: 38 years old Clinical indication: Other: R chest/shoulder - eval infil; Patient HX: R. Chest/shoulder pain, eval inf TECHNIQUE: Imaging protocol: Radiologic exam of the chest. Views: 2 views. COMPARISON: CR XR CHEST 2V PA LATERAL 01/27/2022 6:41 PM FINDINGS: Lungs: Localized right middle lobe airspace disease and mild interstitial prominence. Pleural spaces: No pleural effusion. Heart/Mediastinum: Normal configuration of the heart. Bones/joints: Unremarkable. IMPRESSION: Localized right middle lobe airspace disease and mild interstitial prominence. Dictated and Authenticated by: Keith Larsen MD. Ordering:SAMUEL Bender MD
[2023-11-22 08:41] LABS: COVID-19 PCR Negative (Negative); Influenza A PCR Negative (Negative); Influenza B PCR Negative (Negative); RSV PCR Negative (Negative)
[2023-11-22] MEDS: Amoxicillin 500 MG CAP 1000 MG PO (08:42)
[2023-11-22 08:43] LABS: Source Nasopharynx
[2023-11-22 20:31] LABS: HIV-1/2 Ag & Ab Screen Negative (Negative)
[2023-11-23 12:33] LABS: Chlamydia Result Negative (Negative); GC Result Negative (Negative)
[2023-11-23 13:30] LABS: Syphilis Serology (RPR) Negative (Negative)
== END 2023-11-22 09:15 | disposition home or self-care (01) ==
PROVIDERS: Emergency Provider Emergency Medicine; PCP Nurse Practitioner Family
DX: J18.9 Pneumonia, unspecified organism (principal); M25.511 Pain in right shoulder; R07.9 Chest pain, unspecified; R05.1 Acute cough
CPT/HCPCS: 87389; 87491; 87591; 87637; 99283; 71046; 86592

== ENCOUNTER 2024-04-10 17:43 | Outpatient (REF) | payer OTHER, SELFPAY ==
[2024-04-12 12:44] LABS: Chlamydia Result Negative (Negative); GC Result Negative (Negative)
== END 2024-04-10 17:44 | disposition home or self-care (01) ==
LOC: LBN 17:43
PROVIDERS: PCP Nurse Practitioner Family; Visit Provider Nurse Practitioner Family
DX: Z00.00 Encounter for general adult medical examination without abnormal findings (principal)
CPT/HCPCS: 87491; 87591

== ENCOUNTER 2024-05-11 17:09 | Outpatient (REF) | payer OTHER, SELFPAY ==
--- NOTE | 2024-05-11 | DI.RAD_ITS ---
Exam(s) XR CHEST 2V PA LATERAL EXAM: XR CHEST 2V PA LATERAL CLINICAL HISTORY: viral infection influenza like illness TECHNIQUE: 2D digital imaging was performed of the chest. Two images were obtained. PA and lateral views were obtained. COMPARISON: CR,XR XR CHEST 2V PA LATERAL from 01/27/2022 CR,XR XR CHEST 2V PA LATERAL from 11/22/2023 FINDINGS: MEDIASTINUM: Normal. HEART: Normal. PULMONARY VASCULATURE: Normal. LUNGS: There is an infiltrate seen in the right middle lobe. The left lung is clear. PLEURAL SPACE: No pleural effusion or pneumothorax. BONE:Within normal limits for the patient's age. There is again seen a mild right convex lumbar curv ature. OTHER FINDINGS:Normal. IMPRESSION: Right middle lobe infiltrate which may represent atelectasis or pneumonia. DATA REPOSITORY: RADIATION DOSE DELIVERED:
--- NOTE | 2024-05-11 18:11 | DI.VRAD_ITS ---
PROCEDURE INFORMATION: Exam: XR Chest Exam date and time: 05/11/2024 5:54 PM Age: 38 years old Clinical indication: Other: Viral infection influenza like illness TECHNIQUE: Imaging protocol: Radiologic exam of the chest. Views: 2 views. COMPARISON: CR XR CHEST 2V PA LATERAL 11/22/2023 8:13 AM FINDINGS: Lungs: There are some coarse increased markings at the right lung base medially. On lateral assessment there appears to be right middle lobe involvement. This is new or worse compared to previous exam. Pleural spaces: Unremarkable. No pleural effusion. No pneumothorax. Heart/Mediastinum: Unremarkable. No cardiomegaly. Bones/joints: Unremarkable. IMPRESSION: Concern for right lower lobe and right middle lobe early consolidation versus atelectasis. Dictated and Authenticated by: Rahceal Espinoza MD. Orderin Cale Yeung MD
== END 2024-05-11 17:29 ==
LOC: DI 17:09
PROVIDERS: PCP Nurse Practitioner Family; Visit Provider Physician Assistant Medical
DX: R91.8 Other nonspecific abnormal finding of lung field (principal)
CPT/HCPCS: 71046